=== PATIENT | female | born 1955 | race Caucasian/White ===

== ENCOUNTER → 2017-02-12 | Outpatient (REF) | payer MEDICARE, SELFPAY ==
[~2017-02-12] MED LIST: AMBI10TA PO; APAP325T4 PO; ASPI81TA85 PO; BUSP10TA PO; CODCAP PO; FISH1000 PO; LATU40TA PO; PRIL20CA9 PO; QUET30XR PO; TOPI50TA9 PO; TRAM50TA2 PO; TRAZ-136 PO; VITA100L PO; VITA1CAP2 PO; VITA500T PO
[2017-02-12 17:12] LABS: ALBUMIN 4.1 GM/DL (3.2-5.2); ALBUMIN/GLOBULIN RATIO 1.37 (1.00-1.93); ALKALINE PHOSPHATASE 94 U/L (45-117); ALT/SGPT 32 U/L (12-78); ANION GAP 5 MEQ/L (8-16); AST/SGOT 19 U/L (15-37); BILIRUBIN,TOTAL 0.3 MG/DL (0.2-1.0); BLOOD UREA NITROGEN 14 MG/DL (7-18); CALCIUM LEVEL 9.4 MG/DL (8.8-10.2); CARBON DIOXIDE LEVEL 26 MEQ/L (21-32); CHLORIDE LEVEL 107 MEQ/L (98-107); CHOLESTEROL LEVEL 285 MG/DL (<200); CREATININE FOR GFR 0.91 MG/DL (0.55-1.02); GLOMERULAR FILTRATION RATE > 60.0 (>45); GLUCOSE, FASTING 101 MG/DL (80-110); POTASSIUM SERUM 4.1 MEQ/L (3.5-5.1); SODIUM LEVEL 138 MEQ/L (136-145); TOTAL PROTEIN 7.1 GM/DL (6.4-8.2); TRIGLYCERIDES LEVEL 361 MG/DL (<150)
== END ==
LOC: M LAB REF 16:35
PROVIDERS: ATTEND Nurse Practitioner Family
DX: E55.9 Vitamin D deficiency, unspecified (principal); E78.5 Hyperlipidemia, unspecified; M79.7 Fibromyalgia; E11.9 Type 2 diabetes mellitus without complications

== ENCOUNTER → 2017-07-21 | Outpatient (CLI) | payer MEDICAID, MEDICARE ==
--- NOTE | 2017-07-21 12:42 | REPMRS ---
Patient History The patient states she had a clinical breast exam in 2016. Patient is postmenopausal. No known family history of cancer. Digital Mammo Diagnostic Bilateral: July 21, 2017 - Exam #: [id number] Bilateral CC and MLO view(s) were taken. Technologist: Ginger Ochoa, Technologist FINDINGS: There are scattered fibroglandular densities. There is no evidence of cancer on this mammogram. ASSESSMENT: BI-RADS/ACR category 2 mammogram. Benign finding(s). Recommendation Routine screening mammogram of both breasts in 1 year (for women over age 40). This mammogram was interpreted with the aid of an FDA-approved computer-aided dectection system. Electronically Signed By: Alec Chaudhari MD 07/21/17 0930
== END ==
LOC: M RAD 12:09
PROVIDERS: ATTEND Nurse Practitioner Adult Health
DX: N64.89 Other specified disorders of breast (principal); Z78.0 Asymptomatic menopausal state

== ENCOUNTER → 2017-09-17 | Outpatient (REF) | payer MEDICARE ==
[2017-09-17 18:06] LABS: CHOLESTEROL LEVEL 244 MG/DL (<200); CHOLESTEROL RISK RATIO 7.393 (<5); HDL CHOLESTEROL 33 MG/DL (>40); NON-HDL-C 211 MG/DL; TRIGLYCERIDES LEVEL 427 MG/DL (<150)
[2017-09-17 18:39] LABS: TOTAL 25(OH) VITAMIN D 18.6 NG/ML (30.0-100.0)
== END ==
LOC: M LAB REF 16:45
DX: E78.5 Hyperlipidemia, unspecified (principal); E55.9 Vitamin D deficiency, unspecified
CPT/HCPCS: 82306

== ENCOUNTER → 2017-12-22 | Outpatient (REF) | payer MEDICARE, MEDICAID ==
[2017-12-22 18:54] LABS: ESTIMATED AVERAGE GLUCOSE 157 MG/DL (60-110); HEMOGLOBIN A1c 7.1 %
== END ==
LOC: M LAB REF 18:04
DX: E11.9 Type 2 diabetes mellitus without complications (principal)
CPT/HCPCS: 83036

== ENCOUNTER → 2019-03-29 | Outpatient (REF) | payer MEDICARE ==
[~2019-03-29] MED LIST changes: -CODCAP PO; +CODCAP5 PO; -QUET30XR PO; +SERO300T PO; -TRAZ-136 PO; +TRAZ-257 PO; +VITA-183 PO; -VITA1CAP2 PO
[2019-03-29 17:47] LABS: BASO # 0.1 10^3/uL (0.0-0.2); BASO % 0.5 % (0.0-1.0); EOS # 0.3 10^3/uL (0.0-0.50); EOS % 3.4 % (0.0-3.0); HEMATOCRIT 45.3 % (36.0-47.0); HEMOGLOBIN 14.8 g/dl (12.0-15.5); LYMPH # 2.5 10^3/uL (1.5-4.5); LYMPH % 24.7 % (24.0-44.0); MEAN CORPUSCULAR HEMOGLOBIN 30.6 pg (27.0-33.0); MEAN CORPUSCULAR HGB CONC 32.7 g/dl (32.0-36.5); MEAN CORPUSCULAR VOLUME 93.6 fl (80.0-96.0); MONO # 0.6 10^3/uL (0.0-0.8); MONO % 6.1 % (0.0-5.0); NEUTROPHILS # 6.6 10^3/uL (1.8-7.7); NEUTROPHILS % 64.7 % (36.0-66.0); PLATELET COUNT, AUTOMATED 286 10^3/uL (150-450); RED BLOOD COUNT 4.84 10^6/uL (4.00-5.40); WHITE BLOOD COUNT 10.1 10^3/uL (4.0-10.0)
[2019-03-29 17:59] LABS: ALBUMIN 3.8 GM/DL (3.2-5.2); ALT/SGPT 30 U/L (12-78); BILIRUBIN,TOTAL 0.3 MG/DL (0.2-1.0); BLOOD UREA NITROGEN 13 MG/DL (7-18); CALCIUM LEVEL 9.5 MG/DL (8.8-10.2); CARBON DIOXIDE LEVEL 30 MEQ/L (21-32); CHLORIDE LEVEL 108 MEQ/L (98-107); CHOLESTEROL LEVEL 251 MG/DL (<200); CHOLESTEROL RISK RATIO 7.171 (<5); CREATININE FOR GFR 0.91 MG/DL (0.55-1.30); GLOMERULAR FILTRATION RATE > 60.0 (>45); GLUCOSE, FASTING 132 MG/DL (70-100); HDL CHOLESTEROL 35 MG/DL (>40); LDL CHOLESTEROL 147 MG/DL (<100); NON-HDL-C 216 MG/DL; POTASSIUM SERUM 4.1 MEQ/L (3.5-5.1); SODIUM LEVEL 142 MEQ/L (136-145); TOTAL PROTEIN 7.1 GM/DL (6.4-8.2); TRIGLYCERIDES LEVEL 347 MG/DL (<150)
[2019-03-29 18:00] LABS: TOTAL 25(OH) VITAMIN D 23.9 NG/ML (30.0-100.0)
== END ==
LOC: M LAB REF 16:56
PROVIDERS: ATTEND Nurse Practitioner Adult Health
DX: Z13.9 Encounter for screening, unspecified (principal)

== ENCOUNTER → 2019-04-13 | Outpatient (REF) | payer MEDICARE ==
[~2019-04-13] MED LIST changes: +CODCAP4 PO; -CODCAP5 PO; +TRAZ-163 PO; -TRAZ-257 PO
[2019-04-16 14:42] LABS: HPV HYBRID CAPTURE II Negative (Negative)
== END ==
LOC: M LAB REF 17:14
PROVIDERS: ATTEND Advanced Practice Midwife
DX: Z12.4 Encounter for screening for malignant neoplasm of cervix (principal)
CPT/HCPCS: 87624; G0123

== ENCOUNTER → 2020-01-14 | Outpatient (REF) | payer MEDICARE ==
[~2020-01-14] MED LIST changes: -CODCAP4 PO; +CODCAP5 PO; -TRAZ-163 PO; +TRAZ-257 PO; +VITA-243 PO; -VITA500T PO
[2020-01-14 17:43] LABS: BASO # 0.1 10^3/uL (0.0-0.2); BASO % 0.7 % (0.0-1.0); EOS # 0.3 10^3/uL (0.0-0.5); EOS % 3.3 % (0.0-3.0); HEMATOCRIT 46.3 % (36.0-47.0); HEMOGLOBIN 15.2 g/dl (12.0-15.5); LYMPH # 2.1 10^3/uL (1.5-5.0); LYMPH % 21.5 % (24.0-44.0); MEAN CORPUSCULAR HEMOGLOBIN 30.5 pg (27.0-33.0); MEAN CORPUSCULAR HGB CONC 32.8 g/dl (32.0-36.5); MEAN CORPUSCULAR VOLUME 92.8 fl (80.0-96.0); MONO # 0.7 10^3/uL (0.0-0.8); NEUTROPHILS # 6.6 10^3/uL (1.5-8.5); NEUTROPHILS % 67.2 % (36.0-66.0); PLATELET COUNT, AUTOMATED 209 10^3/uL (150-450); RED BLOOD COUNT 4.99 10^6/uL (4.00-5.40); WHITE BLOOD COUNT 9.9 10^3/uL (4.0-10.0)
[2020-01-14 17:51] LABS: ALBUMIN 3.7 GM/DL (3.2-5.2); ALT/SGPT 45 U/L (12-78); BILIRUBIN,TOTAL 0.3 MG/DL (0.2-1.0); BLOOD UREA NITROGEN 13 MG/DL (7-18); CALCIUM LEVEL 9.2 MG/DL (8.8-10.2); CARBON DIOXIDE LEVEL 30 MEQ/L (21-32); CHLORIDE LEVEL 105 MEQ/L (98-107); CHOLESTEROL LEVEL 130 MG/DL (<200); CHOLESTEROL RISK RATIO 3.939 (<5); CREATININE FOR GFR 0.86 MG/DL (0.55-1.30); FREE T4 0.93 NG/DL (0.76-1.46); GLOMERULAR FILTRATION RATE > 60.0 (>45); GLUCOSE, FASTING 282 MG/DL (70-100); HDL CHOLESTEROL 33 MG/DL (>40); LDL CHOLESTEROL 63 MG/DL (<100); NON-HDL-C 97 MG/DL; POTASSIUM SERUM 4.1 MEQ/L (3.5-5.1); SODIUM LEVEL 138 MEQ/L (136-145); TOTAL PROTEIN 7.3 GM/DL (6.4-8.2); TRIGLYCERIDES LEVEL 170 MG/DL (<150)
[2020-01-14 17:55] LABS: TOTAL 25(OH) VITAMIN D 24.9 NG/ML (30.0-100.0)
[2020-01-14 18:10] LABS: HEMOGLOBIN A1c 11.6 %
== END ==
LOC: M LAB REF 17:25
PROVIDERS: ATTEND Physician Assistant
DX: R53.1 Weakness (principal); F17.200 Nicotine dependence, unspecified, uncomplicated; E78.5 Hyperlipidemia, unspecified; J44.9 Chronic obstructive pulmonary disease, unspecified; M79.7 Fibromyalgia; E55.9 Vitamin D deficiency, unspecified; E11.65 Type 2 diabetes mellitus with hyperglycemia; F31.9 Bipolar disorder, unspecified

== ENCOUNTER → 2020-06-26 | Outpatient (REF) | payer OTHER ==
[~2020-06-26] MED LIST changes: -ASPI81TA85 PO; +ASPI81TA86 PO
[2020-06-26 16:43] LABS: HEMATOCRIT 48.7 % (36.0-47.0); HEMOGLOBIN 15.6 g/dl (12.0-15.5); MEAN CORPUSCULAR HEMOGLOBIN 31.3 pg (27.0-33.0); MEAN CORPUSCULAR VOLUME 97.6 fl (80.0-96.0); PLATELET COUNT, AUTOMATED 287 10^3/uL (150-450); RED BLOOD COUNT 4.99 10^6/uL (4.00-5.40); WHITE BLOOD COUNT 11.1 10^3/uL (4.0-10.0)
[2020-06-26 17:16] LABS: ALBUMIN 4.2 GM/DL (3.2-5.2); ALT/SGPT 31 U/L (12-78); BILIRUBIN,TOTAL 0.4 MG/DL (0.2-1.0); BLOOD UREA NITROGEN 11 MG/DL (7-18); CALCIUM LEVEL 9.7 MG/DL (8.8-10.2); CARBON DIOXIDE LEVEL 28 MEQ/L (21-32); CHLORIDE LEVEL 106 MEQ/L (98-107); CHOLESTEROL LEVEL 105 MG/DL (<200); CHOLESTEROL RISK RATIO 2.837 (<5); CREATININE FOR GFR 0.97 MG/DL (0.55-1.30); GLOMERULAR FILTRATION RATE > 60.0 (>45); GLUCOSE, FASTING 96 MG/DL (70-100); HDL CHOLESTEROL 37 MG/DL (>40); LDL CHOLESTEROL 32 MG/DL (<100); NON-HDL-C 68 MG/DL; POTASSIUM SERUM 4.1 MEQ/L (3.5-5.1); SODIUM LEVEL 139 MEQ/L (136-145); TOTAL PROTEIN 7.7 GM/DL (6.4-8.2); TRIGLYCERIDES LEVEL 179 MG/DL (<150)
[2020-06-26 17:37] LABS: HEMOGLOBIN A1c 5.7 %
== END ==
LOC: M LAB REF 16:05
PROVIDERS: ATTEND Physician Assistant
DX: E11.65 Type 2 diabetes mellitus with hyperglycemia (principal); E78.5 Hyperlipidemia, unspecified; E55.9 Vitamin D deficiency, unspecified

== ENCOUNTER → 2020-11-10 | Outpatient (REF) | payer OTHER, MEDICARE ==
[2020-11-10 18:12] LABS: BASO # 0.1 10^3/uL (0.0-0.2); BASO % 0.6 % (0.0-1.0); EOS # 0.3 10^3/uL (0.0-0.5); EOS % 2.3 % (0.0-3.0); HEMATOCRIT 45.9 % (36.0-47.0); HEMOGLOBIN 14.4 g/dl (12.0-15.5); LYMPH # 2.3 10^3/uL (1.5-5.0); MEAN CORPUSCULAR HEMOGLOBIN 30.6 pg (27.0-33.0); MEAN CORPUSCULAR HGB CONC 31.4 g/dl (32.0-36.5); MEAN CORPUSCULAR VOLUME 97.7 fl (80.0-96.0); MONO # 0.9 10^3/uL (0.0-0.8); NEUTROPHILS # 7.4 10^3/uL (1.5-8.5); NEUTROPHILS % 67.7 % (36.0-66.0); PLATELET COUNT, AUTOMATED 305 10^3/uL (150-450); WHITE BLOOD COUNT 10.9 10^3/uL (4.0-10.0)
[2020-11-10 18:47] LABS: ALBUMIN 4.1 GM/DL (3.2-5.2); ALT/SGPT 32 U/L (12-78); BILIRUBIN,TOTAL 0.3 MG/DL (0.2-1.0); BLOOD UREA NITROGEN 14 MG/DL (7-18); CALCIUM LEVEL 9.3 MG/DL (8.8-10.2); CARBON DIOXIDE LEVEL 28 MEQ/L (21-32); CHLORIDE LEVEL 110 MEQ/L (98-107); CHOLESTEROL LEVEL 110 MG/DL (<200); CHOLESTEROL RISK RATIO 2.972 (<5); CREATININE FOR GFR 0.86 MG/DL (0.55-1.30); GLOMERULAR FILTRATION RATE > 60.0 (>45); GLUCOSE, FASTING 94 MG/DL (70-100); HDL CHOLESTEROL 37 MG/DL (>40); LDL CHOLESTEROL 40 MG/DL (<100); NON-HDL-C 73 MG/DL; POTASSIUM SERUM 4.7 MEQ/L (3.5-5.1); SODIUM LEVEL 141 MEQ/L (136-145); TOTAL PROTEIN 7.1 GM/DL (6.4-8.2); TRIGLYCERIDES LEVEL 163 MG/DL (<150)
[2020-11-10 18:54] LABS: TOTAL 25(OH) VITAMIN D 22.7 NG/ML (30.0-100.0)
[2020-11-10 19:30] LABS: HEMOGLOBIN A1c 5.8 %
== END ==
LOC: M LAB REF 17:12
PROVIDERS: ATTEND Physician Assistant
DX: E11.8 Type 2 diabetes mellitus with unspecified complications (principal); E55.9 Vitamin D deficiency, unspecified

== ENCOUNTER 2021-02-01 09:27 | Emergency (ER) | payer MEDICARE, OTHER ==
[~2021-02-01] VITALS: Ht 172.7 cm; Wt 80.7 kg
[2021-02-01] MEDS ORDERED: HYDR50CA2 (09:35)
[2021-02-01] MEDS ORDERED: ZOLP10TA2 (09:35)
[2021-02-01] MEDS ORDERED: ATOR80TA59 (09:35)
[2021-02-01] MEDS ORDERED: METF-838 (09:35)
[2021-02-01 10:08] LABS: BASO # 0.1 10^3/uL (0.0-0.2); BASO % 0.5 % (0.0-1.0); EOS # 0.2 10^3/uL (0.0-0.5); EOS % 1.7 % (0.0-3.0); HEMATOCRIT 45.9 % (36.0-47.0); HEMOGLOBIN 14.5 g/dl (12.0-15.5); LYMPH # 2.4 10^3/uL (1.5-5.0); LYMPH % 21.5 % (24.0-44.0); MEAN CORPUSCULAR HEMOGLOBIN 30.1 pg (27.0-33.0); MEAN CORPUSCULAR HGB CONC 31.6 g/dl (32.0-36.5); MEAN CORPUSCULAR VOLUME 95.4 fl (80.0-96.0); MONO # 0.7 10^3/uL (0.0-0.8); MONO % 6.4 % (2.0-8.0); NEUTROPHILS # 7.7 10^3/uL (1.5-8.5); NEUTROPHILS % 69.4 % (36.0-66.0); PLATELET COUNT, AUTOMATED 393 10^3/uL (150-450); RED BLOOD COUNT 4.81 10^6/uL (4.00-5.40)
[2021-02-01 10:33] LABS: ALT/SGPT 146 U/L (12-78); BLOOD UREA NITROGEN 16 MG/DL (7-18); CALCIUM LEVEL 9.8 MG/DL (8.8-10.2); CARBON DIOXIDE LEVEL 30 MEQ/L (21-32); CHLORIDE LEVEL 105 MEQ/L (98-107); CK-MB VALUE MASS < 1.0 NG/ML (<3.6); CPK CREATINE PHOSPHOKINASE 97 U/L (26-192); CREATININE FOR GFR 0.84 MG/DL (0.55-1.30); GLOMERULAR FILTRATION RATE > 60.0 (>45); GLUCOSE, FASTING 93 MG/DL (70-100); MB/CK RELATIVE INDEX 1.03 (< OR =4); SODIUM LEVEL 141 MEQ/L (136-145)
[2021-02-01 10:34] LABS: ALBUMIN 3.7 GM/DL (3.2-5.2); BILIRUBIN,DIRECT 0.2 MG/DL (0.0-0.2); BILIRUBIN,TOTAL 0.4 MG/DL (0.2-1.0); LIPASE 90 U/L (73-393); TOTAL PROTEIN 7.6 GM/DL (6.4-8.2); TROPONIN I < 0.02 NG/ML (< 0.10)
--- NOTE | 2021-02-01 11:32 | REP ---
INDICATION: RUQ pain COMPARISON: None. TECHNIQUE: Real time rojas scale ultrasound examination using curved array transducer. FINDINGS: Liver is mildly heterogeneous and includes a 1.7 x 1.5 x 1.6 cm anechoic lesion with somewhat irregular borders which likely represents complex cyst. No further hepatic abnormalities identified. Pancreas is incompletely evaluated due to interposed bowel gas. The gallbladder demonstrates mild wall thickening along with multiple gallstones. There is mild intrahepatic biliary ductal dilatation and the common bile duct is dilated to 11.6 mm with a suspected obstructing calculus in the distal common bile duct. The right kidney is without hydronephrosis and measures 10.6 x 5.4 x 4.3 cm including subcentimeter midpole cyst. No ascites. IMPRESSION: Early acute cholecystitis and biliary ductal dilatation secondary to suspected obstructing choledocholith in the distal common bile duct. Irregular bordered cystic lesion within the liver likely complex cyst. <Electronically signed by Delroy Prince > 02/01/21 1129
[2021-02-01] MEDS ORDERED: NS 1,000 ML IV SCH (13:25)
[2021-02-01] MEDS ORDERED: PIPERACILLIN/TAZOBACTAM SOD 3.375 GM in D5W MINI-BAG PLUS 50 ML IV ONE (13:25)
[2021-02-01 13:38] LABS: RSV AMPLIFICATION NEGATIVE (NEGATIVE)
[2021-02-01 14:56] VITALS: BP 119/59
--- NOTE | 2021-02-01 18:02 | ECGEPIP ---
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
== END 2021-02-01 14:57 | disposition short-term general hospital (02) ==
LOC: M ED 09:27
DX: K80.20 Calculus of gallbladder without cholecystitis without obstruction (principal); E11.9 Type 2 diabetes mellitus without complications; I10 Essential (primary) hypertension; K21.9 Gastro-esophageal reflux disease without esophagitis; F31.9 Bipolar disorder, unspecified; F17.200 Nicotine dependence, unspecified, uncomplicated; Z79.82 Long term (current) use of aspirin; Z79.899 Other long term (current) drug therapy
CPT/HCPCS: 76705; 80048; 80076; 82550; 82553; 83690; 84484; 85025; 87631; 93005; 96365; 99285; J2543

== ENCOUNTER → 2021-04-19 | Outpatient (CLI) | payer MEDICARE ==
[~2021-04-19] MED LIST changes: +ATOR80TA59; +D 101000 PO; +HYDR50CA2; +METF-838; +METR-265 PO; +QUET100T2 PO; +QUET400T2 PO; +TRAZ-189 PO; +ZOLP10TA2
== END ==
LOC: M LABSMTC 09:03
PROVIDERS: ATTEND Anesthesiology
DX: Z01.812 Encounter for preprocedural laboratory examination (principal); Z20.822 Contact with and (suspected) exposure to COVID-19

== ENCOUNTER → 2021-04-20 | Outpatient (CLI) | payer MEDICARE ==
[2021-04-20 15:53] LABS: BASO # 0.1 10^3/uL (0.0-0.2); BASO % 0.5 % (0.0-1.0); EOS # 0.3 10^3/uL (0.0-0.5); EOS % 2.2 % (0.0-3.0); HEMATOCRIT 43.5 % (36.0-47.0); HEMOGLOBIN 14.1 g/dl (12.0-15.5); LYMPH # 3.4 10^3/uL (1.5-5.0); LYMPH % 26.4 % (24.0-44.0); MEAN CORPUSCULAR HEMOGLOBIN 30.7 pg (27.0-33.0); MEAN CORPUSCULAR HGB CONC 32.4 g/dl (32.0-36.5); MEAN CORPUSCULAR VOLUME 94.6 fl (80.0-96.0); MONO # 0.9 10^3/uL (0.0-0.8); MONO % 6.7 % (2.0-8.0); NEUTROPHILS # 8.1 10^3/uL (1.5-8.5); NEUTROPHILS % 63.9 % (36.0-66.0); PLATELET COUNT, AUTOMATED 342 10^3/uL (150-450); WHITE BLOOD COUNT 12.7 10^3/uL (4.0-10.0)
[2021-04-20 16:23] LABS: BLOOD UREA NITROGEN 15 MG/DL (7-18); CALCIUM LEVEL 9.5 MG/DL (8.8-10.2); CARBON DIOXIDE LEVEL 32 MEQ/L (21-32); CHLORIDE LEVEL 105 MEQ/L (98-107); CREATININE FOR GFR 0.87 MG/DL (0.55-1.30); GLOMERULAR FILTRATION RATE > 60.0 (>45); GLUCOSE, FASTING 106 MG/DL (70-100); POTASSIUM SERUM 3.9 MEQ/L (3.5-5.1); SODIUM LEVEL 141 MEQ/L (136-145)
== END ==
LOC: M LAB 15:15
PROVIDERS: ATTEND Physician Assistant
DX: Z01.818 Encounter for other preprocedural examination (principal)

== ENCOUNTER → 2021-04-24 | Day surgery (SDC) | payer MEDICARE ==
[~2021-04-24] VITALS: Ht 172.7 cm; Wt 80.6 kg
[~2021-04-24] MED LIST changes: +ACETAMINOPHEN 1000MG 100ML IV BTL (OFIRMEV) (J0131 PER 10MG) As Ordered ONE; +BUPIVACAINE/EPIN 0.25% 30 ML VIAL As Ordered ONE; +KETOROLAC 30 MG/ML 1ML VIAL IV ONE; +LIDOCAINE 1% MDV 20ML VIAL SQ PRN; +LIDOCAINE 2% 100MG/5ML SDV (FOR ANES.) As Ordered ONE; +LR 1,000 ML IV ONE; +LR 1,000 ML IV SCH; +METF-838 PO; +METOCLOPRAMIDE INJ 10MG/2ML VIAL (J2765 PER 1) As Ordered ONE; +MIDAZOLAM INJ 2MG/2ML VIAL (J2250 PER 1MG) As Ordered ONE; +NORCO, ANEXSIA 5/325MG TABLET (HYDROcodone/ACETAMINOPHEN) PO PRN; +ONDANSETRON 4MG/2ML VIAL As Ordered ONE; +ONDANSETRON 4MG/2ML VIAL IV PRN; +ROCURONIUM BROMIDE 50 MG/5 ML VIAL As Ordered ONE; +SUGAMMADEX SODIUM 500 MG/5 ML VIAL (BRIDION) As Ordered ONE; +ZOLP10TA2 PO; +ceFAZolin SOD 2 GM in IV 1 EA IV ONE; +dexameTHASONE 4 MG/ML 1ML VIAL (J1100 PER 1MG) As Ordered ONE; +fentaNYL 100 MCG/2 ML INJECTION (J3010) As Ordered ONE; +fentaNYL 100 MCG/2 ML INJECTION (J3010) IV PRN; +oxyCODONE 5MG TAB PO PRN; +propofoL 200 MG/20 ML VIAL As Ordered ONE
[2021-04-24] MEDS: ceFAZolin SOD 1 GM in D5W MINI-BAG PLUS 50 ML IV SCH ×4 (09:10)
[2021-04-24 12:20] VITALS: BP 133/71
== END | disposition home or self-care (01) ==
LOC: M SDC 07:00
PROVIDERS: ATTEND Surgery
DX: K80.10 Calculus of gallbladder with chronic cholecystitis without obstruction (principal); E78.00 Pure hypercholesterolemia, unspecified; K59.00 Constipation, unspecified; M79.7 Fibromyalgia; E11.9 Type 2 diabetes mellitus without complications; F32.9 Major depressive disorder, single episode, unspecified; Z79.82 Long term (current) use of aspirin; Z79.84 Long term (current) use of oral hypoglycemic drugs; Z79.899 Other long term (current) drug therapy
CPT/HCPCS: 47562; 88304; J0131; J0690; J1100; J1885; J2250; J2405; J2765; J3010

== ENCOUNTER 2021-05-19 13:44 | Emergency (ER) | payer MEDICARE ==
[~2021-05-19] VITALS: Ht 172.7 cm; Wt 80.0 kg
[~2021-05-19 13:44] MED LIST changes: -ACETAMINOPHEN 1000MG 100ML IV BTL (OFIRMEV) (J0131 PER 10MG) As Ordered ONE; -BUPIVACAINE/EPIN 0.25% 30 ML VIAL As Ordered ONE; -KETOROLAC 30 MG/ML 1ML VIAL IV ONE; -LIDOCAINE 1% MDV 20ML VIAL SQ PRN; -LIDOCAINE 2% 100MG/5ML SDV (FOR ANES.) As Ordered ONE; -LR 1,000 ML IV ONE; -LR 1,000 ML IV SCH; -METOCLOPRAMIDE INJ 10MG/2ML VIAL (J2765 PER 1) As Ordered ONE; -MIDAZOLAM INJ 2MG/2ML VIAL (J2250 PER 1MG) As Ordered ONE; -NORCO, ANEXSIA 5/325MG TABLET (HYDROcodone/ACETAMINOPHEN) PO PRN; -ONDANSETRON 4MG/2ML VIAL As Ordered ONE; -ONDANSETRON 4MG/2ML VIAL IV PRN; -ROCURONIUM BROMIDE 50 MG/5 ML VIAL As Ordered ONE; -SUGAMMADEX SODIUM 500 MG/5 ML VIAL (BRIDION) As Ordered ONE; -ceFAZolin SOD 2 GM in IV 1 EA IV ONE; -dexameTHASONE 4 MG/ML 1ML VIAL (J1100 PER 1MG) As Ordered ONE; -fentaNYL 100 MCG/2 ML INJECTION (J3010) As Ordered ONE; -fentaNYL 100 MCG/2 ML INJECTION (J3010) IV PRN; -oxyCODONE 5MG TAB PO PRN; -propofoL 200 MG/20 ML VIAL As Ordered ONE
[2021-05-19] MEDS ORDERED: NAPR-849 PO (14:03)
[2021-05-19] MEDS ORDERED: diazePAM 10MG/2ML SYRINGE (J3360 PER 5MG) IV ONE (14:05)
[2021-05-19 14:38] LABS: BASO # 0.1 10^3/uL (0.0-0.2); BASO % 0.5 % (0.0-1.0); EOS # 0.2 10^3/uL (0.0-0.5); EOS % 1.8 % (0.0-3.0); HEMATOCRIT 38.2 % (36.0-47.0); HEMOGLOBIN 12.4 g/dl (12.0-15.5); LYMPH # 1.8 10^3/uL (1.5-5.0); LYMPH % 13.5 % (24.0-44.0); MEAN CORPUSCULAR HEMOGLOBIN 30.2 pg (27.0-33.0); MEAN CORPUSCULAR HGB CONC 32.5 g/dl (32.0-36.5); MEAN CORPUSCULAR VOLUME 92.9 fl (80.0-96.0); MONO # 0.9 10^3/uL (0.0-0.8); MONO % 6.8 % (2.0-8.0); NEUTROPHILS % 77.1 % (36.0-66.0); PLATELET COUNT, AUTOMATED 281 10^3/uL (150-450); RED BLOOD COUNT 4.11 10^6/uL (4.00-5.40)
--- NOTE | 2021-05-19 14:42 | REP ---
INDICATION: severe headache/vomiting COMPARISON: 05/24/2015 TECHNIQUE: Axial noncontrast images from the skull base to the thoracic inlet with coronal reformations. This CT examination was performed using the following dose reduction techniques: Automated exposure control, adjustment of mA and/or kv according to the patient's size, and use of iterative reconstruction technique. FINDINGS: Age-related atrophy and microvascular ischemic changes are appreciated. The ventricles and sulci are symmetric. Chaudhari-white differentiation is maintained. There is no evidence for acute intracranial hemorrhage, mass/mass effect, pathology or infarction. No extra-axial fluid collection. Calvarium is intact. Paranasal sinuses and mastoid air cells are clear. IMPRESSION: Age-related changes. No acute intracranial hemorrhage, infarction, or mass/mass effect. <Electronically signed by Delroy Prince > 05/19/21 1697
[2021-05-19 14:53] LABS: ALBUMIN 3.2 GM/DL (3.2-5.2); ALT/SGPT 19 U/L (12-78); BILIRUBIN,DIRECT < 0.1 MG/DL (0.0-0.2); BILIRUBIN,TOTAL 0.3 MG/DL (0.2-1.0); BLOOD UREA NITROGEN 11 MG/DL (7-18); CALCIUM LEVEL 8.8 MG/DL (8.8-10.2); CARBON DIOXIDE LEVEL 28 MEQ/L (21-32); CHLORIDE LEVEL 111 MEQ/L (98-107); CREATININE FOR GFR 0.74 MG/DL (0.55-1.30); GLOMERULAR FILTRATION RATE > 60.0 (>45); GLUCOSE, FASTING 101 MG/DL (70-100); LIPASE 60 U/L (73-393); POTASSIUM SERUM 3.7 MEQ/L (3.5-5.1); SODIUM LEVEL 142 MEQ/L (136-145); TOTAL PROTEIN 6.6 GM/DL (6.4-8.2)
[2021-05-19] MEDS ORDERED: ACETAMINOPHEN 325 MG TAB PO ONE (15:15)
[2021-05-19 17:24] VITALS: BP 121/78
== END 2021-05-19 17:42 | disposition home or self-care (01) ==
LOC: M ED 13:44 → EDBD 13:44 → M ED 17:42
DX: R19.7 Diarrhea, unspecified (principal); R11.2 Nausea with vomiting, unspecified; R51.9 Headache, unspecified; I10 Essential (primary) hypertension; E78.5 Hyperlipidemia, unspecified; F31.9 Bipolar disorder, unspecified; Z79.899 Other long term (current) drug therapy
CPT/HCPCS: 70450; 80048; 80076; 83690; 85025; 93041; 96374; 99285; J3360

== ENCOUNTER 2021-07-08 12:34 | Emergency (ER) | payer MEDICARE ==
[~2021-07-08] VITALS: Ht 167.6 cm; Wt 75.9 kg
[~2021-07-08 12:34] MED LIST changes: +NAPR-849 PO
[2021-07-08] MEDS ORDERED: dexameTHASONE 20MG/5ML VIAL (J1100 PER 1MG) IV ONE (13:25)
[2021-07-08 13:27] LABS: VENOUS HCO3 27.3 MEQ/L (23.0-27.0); VENOUS O2 SATURATION 36.6 % (60.0-80.0); VENOUS PARTIAL PRESSURE CO2 55.4 mmHg (38.0-50.0); VENOUS PARTIAL PRESSURE O2 19.7 mmHg (30.0-50.0)
[2021-07-08 13:30] LABS: BASO # 0.1 10^3/uL (0.0-0.2); BASO % 0.5 % (0.0-1.0); EOS # 0.3 10^3/uL (0.0-0.5); EOS % 2.1 % (0.0-3.0); HEMATOCRIT 41.7 % (36.0-47.0); HEMOGLOBIN 13.1 g/dl (12.0-15.5); LYMPH # 2.4 10^3/uL (1.5-5.0); LYMPH % 17.3 % (24.0-44.0); MEAN CORPUSCULAR HGB CONC 31.4 g/dl (32.0-36.5); MEAN CORPUSCULAR VOLUME 92.3 fl (80.0-96.0); MONO # 0.9 10^3/uL (0.0-0.8); MONO % 6.3 % (2.0-8.0); NEUTROPHILS # 10.2 10^3/uL (1.5-8.5); NEUTROPHILS % 73.2 % (36.0-66.0); PLATELET COUNT, AUTOMATED 427 10^3/uL (150-450); RED BLOOD COUNT 4.52 10^6/uL (4.00-5.40); WHITE BLOOD COUNT 13.9 10^3/uL (4.0-10.0)
--- NOTE | 2021-07-08 13:31 | REP ---
INDICATION: Altered Mental Status. Progressive right-sided weakness. COMPARISON: CT head without IV contrast, 05/19/2021. TECHNIQUE: Contiguous 5 mm thick axial projection images were obtained of the head. 2D coronal reconstructions were performed. FINDINGS: There is an area cerebral edema centered in the subcortical and periventricular white matter of the left frontal cortex and extending posteriorly into the parietal cortex. This is most consistent with an underlying mass with surrounding edema, most likely a neoplasm which could be primary or metastatic. There is no significant midline shift or mass effect. There is no evidence of associated hemorrhage. No additional abnormalities are identified. IMPRESSION: 1. Area of white matter edema involving the left frontal and parietal lobes most consistent with an underlying mass, as described. 2. There is no significant mass effect. 3. There are no additional abnormalities and there is no associated hemorrhage. Pertinent findings: Left-sided cerebral edema, without mass effect. The critical information above was relayed directly by me by telephone to Herb Chan on 07/08/2021 at 1:26 pm with readback verification. <Electronically signed by Irving Gusman > 07/08/21 1498
--- NOTE | 2021-07-08 13:48 | REP ---
INDICATION: Altered Mental Status. COMPARISON: PA and lateral chest, 11/01/2014. TECHNIQUE: AP portable chest image was obtained. FINDINGS: The lungs are clear. The heart borders mediastinum and pulmonary vascular pattern normal. The upper abdomen appears unremarkable. There are no bony abnormalities. IMPRESSION: No evidence of acute cardiopulmonary pathology. <Electronically signed by Irving Gusman > 07/08/21 1538
[2021-07-08 14:00] LABS: ALBUMIN 3.2 GM/DL (3.2-5.2); ALT/SGPT 26 U/L (12-78); BILIRUBIN,DIRECT < 0.1 MG/DL (0.0-0.2); BILIRUBIN,TOTAL 0.2 MG/DL (0.2-1.0); BLOOD UREA NITROGEN 11 MG/DL (7-18); CALCIUM LEVEL 9.4 MG/DL (8.8-10.2); CARBON DIOXIDE LEVEL 28 MEQ/L (21-32); CHLORIDE LEVEL 106 MEQ/L (98-107); CREATININE FOR GFR 0.88 MG/DL (0.55-1.30); GLOMERULAR FILTRATION RATE > 60.0 (>45); GLUCOSE, FASTING 118 MG/DL (70-100); POTASSIUM SERUM 3.9 MEQ/L (3.5-5.1); SODIUM LEVEL 142 MEQ/L (136-145); TOTAL PROTEIN 7.3 GM/DL (6.4-8.2)
[2021-07-08 14:51] LABS: RSV AMPLIFICATION NEGATIVE (NEGATIVE)
[2021-07-08 16:32] VITALS: BP 141/77
--- NOTE | 2021-07-08 17:26 | ECGEPIP ---
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
== END 2021-07-08 17:04 | disposition short-term general hospital (02) ==
LOC: EDBD 12:34 → M ED 12:34
DX: G93.89 Other specified disorders of brain (principal); E11.9 Type 2 diabetes mellitus without complications; I10 Essential (primary) hypertension; E78.5 Hyperlipidemia, unspecified; F31.9 Bipolar disorder, unspecified; Z79.82 Long term (current) use of aspirin; Z79.899 Other long term (current) drug therapy
CPT/HCPCS: 70450; 71045; 80047; 80048; 80076; 81001; 82803; 83605; 84443; 85025; 87040; 87631; 93005; 93041; 94760; 96374; 99285; J1100

== ENCOUNTER → 2021-07-30 | Outpatient (CLI) | payer MEDICARE ==
[~2021-07-30] MED LIST changes: -ATOR80TA59; +ATOR80TA59 PO; +CODE30TA PO; +D31000TA2 PO; +DEXA4TA PO; +ECOT81TA5 PO; +HYDR100C PO; -HYDR50CA2; +HYDR50CA2 PO; -LATU40TA PO; +LATU40TA2 PO; +LEVE750T5 PO
== END ==
LOC: M PLARAD 10:04
PROVIDERS: ATTEND Internal Medicine Hematology & Oncology
DX: Z53.9 Procedure and treatment not carried out, unspecified reason (principal)

== ENCOUNTER → 2021-07-31 | Outpatient (CLI) | payer MEDICARE ==
[~2021-07-31] MED LIST changes: -CODE30TA PO; -HYDR100C PO; +LATU40TA PO; -LATU40TA2 PO
[2021-07-31 12:21] LABS: BASO % 0.1 % (0.0-1.0); HEMATOCRIT 41.6 % (36.0-47.0); HEMOGLOBIN 13.8 g/dl (12.0-15.5); LYMPH # 0.9 10^3/uL (1.5-5.0); LYMPH % 5.2 % (24.0-44.0); MEAN CORPUSCULAR HGB CONC 33.2 g/dl (32.0-36.5); MEAN CORPUSCULAR VOLUME 90.4 fl (80.0-96.0); MONO # 0.7 10^3/uL (0.0-0.8); MONO % 3.8 % (2.0-8.0); NEUTROPHILS # 16.2 10^3/uL (1.5-8.5); NEUTROPHILS % 89.4 % (36.0-66.0); PLATELET COUNT, AUTOMATED 231 10^3/uL (150-450); WHITE BLOOD COUNT 18.1 10^3/uL (4.0-10.0)
[2021-07-31 12:50] LABS: ALBUMIN 3.2 GM/DL (3.2-5.2); ALT/SGPT 42 U/L (12-78); BILIRUBIN,TOTAL 0.3 MG/DL (0.2-1.0); BLOOD UREA NITROGEN 29 MG/DL (7-18); CARBON DIOXIDE LEVEL 26 MEQ/L (21-32); CHLORIDE LEVEL 103 MEQ/L (98-107); CREATININE FOR GFR 0.94 MG/DL (0.55-1.30); GLOMERULAR FILTRATION RATE > 60.0 (>45); GLUCOSE, FASTING 339 MG/DL (70-100); POTASSIUM SERUM 4.4 MEQ/L (3.5-5.1); SODIUM LEVEL 135 MEQ/L (136-145); TOTAL PROTEIN 6.4 GM/DL (6.4-8.2)
--- NOTE | 2021-07-31 12:59 | RADONC.CN ---
Radiation Oncology Hx/Consult Radiation Oncology Consult Date of Service: Jul 31, 2021 Pt Identifier Maine Hart is a 66 year old female smoker who presented with a seizure and right-sided weakness on 07/08/21 and was found to have 2 intracranial lesions in the left high frontal and parietal lobes, respectively. She was transferred to [email or web address]] where workup revealed a right-sided colon mass s/p colonoscopy showing adenocarcinoma, as well as a large RLL lung mass which was biopsied on 07/12/21 and returned poorly differentiated adenocarcinoma. She has established with medical oncology @ [facility] and will undergo repeat MRI on 08/09/21. She is seen today to discuss SRS. Diagnosis/Treatment History Oncologic History 07/08/21 Suffered seizures and right-sided hemiparesis, presented to [facility] ED where CT head showed edema in the left frontal-parietal region. She was transferred to [facility] [email or web address] MRI brain revealed 2 small metastatic lesions left parafalcine frontal 1.6 x 1.3 cm and left parafalcine parietal 0.8 x 0.7 cm. Body scans showed a RLL mass ~ 5 cm, metastatic adenopathy and a small right colon mass of unclear etiology. She underwent colonoscopy on 07/11/[address] biopsy of the RLL mass which showed NSCLC (adenocarcinoma) c/w lung origin. She was discharged and established with medical oncology @ [facility] on 07/20/21. Recent data: 07/12/21 Pathology Diagnosis LUNG, RIGHT LOWER LOBE LESION, CORE BIOPSY: ADENOCARCINOMA. (See Microscopic Description). 07/11/21 Colonoscopy Diagnosis COLON, RIGHT, BIOPSY: INVASIVE MODERATELY DIFFERENTIATED ADENOCARCINOMA. 07/09/21 MRI brain FINDINGS; There are 2 enhancing lesions, one on the left posterior frontal lobe containing hemosiderin deposition and the other in the left parietal lobe measuring 1.6 cm and 0.8 cm in AP dimension respectively with associated prominent surrounding edema. The ring-enhancing portion shows diffusion restriction. The ventricular system is age appropriate in size, shape, and configuration. The ventricles are midline. The cortical sulci is age appropriate in size, shape and configuration. There is no midline shift or mass effect. Normal flow-voids are seen bilaterally. Several nonspecific punctate foci of T2 and FLAIR high signal intensity scattered within the white matter at the level of velasquez radiata and centrum semiovale bilaterally. Chaudhari and white matter differentiation is preserved. No significant congenital anomaly. No AVM or aneurysm. The visualized brain stem is unremarkable. The visualized posterior fossa structures shows a few nonspecific punctate foci of T2 and FLAIR high signal intensity in the left cerebellar hemisphere medially. The sella, hypophysis, and corpus callosum are grossly unremarkable with normal posterior pituitary T1 bright spot. No evidence of Chiari I malformation. The internal auditory canals are symmetric and unremarkable. The cerebellopontine angle is unremarkable bilaterally. Visualized paranasal sinuses including the mastoid air cells are all clear. IMPRESSION: 1. 2 small ring-enhancing lesions as described above suspicious for brain m etastases. 2. Minimal underlying chronic microvascular ischemic changes of the white matter. Interval History Maine feels well, strength has returned near-normal, no further seizures. Continues on keppra. Continues on decadron 4 mg TID. No pain whatsoever, no SOB. Has decided to quit smoking. No weight loss or BRBPR. Past Medical History: COPD Bipolar disorder DM2 Past Surgical History: Tonsillectomy Cholecystectomy Family History: Father pancreatic cancer Social History: 50+ pack year smoker (recent quit) Used to drink alcohol does not currently Allergies / Meds Allergies: Coded Allergies: No Known Drug Allergies (Verified Allergy, Unknown, 04/24/21) Home Meds Reported Medications Dexamethasone (Dexamethasone) 4 Mg Tablet, 1 TAB PO Q6H 07/20/21 Levetiracetam (Levetiracetam) 750 Mg Tablet, 1 TAB PO BID 07/20/21 Cholecalciferol (Vitamin D3) (Vitamin D3) 1,000 Unit Tablet, 1000 UNITS PO DAILY, TAB 07/20/21 Aspirin (Ecotrin) 81 Mg Tablet.dr, 1 TAB PO DAILY for pain for 30 Days, #30 TAB 07/20/21 Metformin HCl (Metformin HCl ER) 500 Mg Tab.er.24h, 1000 MG PO QHS, TAB pt states she takes 1000mg po q2d in addition to the 1000mg qhs 04/24/21 Zolpidem Tartrate (Zolpidem Tartrate) 10 Mg Tablet, 10 MG PO QHS 04/24/21 Quetiapine Fumarate (Quetiapine Fumarate) 100 Mg Tablet, 100 MG PO DAILY 04/11/21 Trazodone HCl (Trazodone HCl) 100 Mg Tablet, 450 MG PO DAILYPRN PRN for INSOMNIA 04/11/21 Quetiapine Fumarate (Quetiapine Fumarate) 400 Mg Tablet, 400 MG PO DAILY 04/11/21 Hydroxyzine Pamoate (Hydroxyzine Pamoate) 50 Mg Capsule, 1 CAP PO TID 02/01/21 Atorvastatin Calcium (Atorvastatin Calcium) 80 Mg Tablet, 1 TAB PO DAILY 02/01/21 Acetaminophen (Acetaminophen) 325 Mg Tab, 325 MG PO QIDP PRN for PAIN, TAB 12/12/15 Review of Systems Constitutional: Reports: Normal appetite; Denies: Weight Loss HEENT: Denies: Head Aches Pulmonary: Reports: Dyspnea; Denies: Pleuritic Chest Pain Cardiovascular: Denies: Chest Pain, Edema Gastrointestinal: Denies: Abdominal Pain Musculoskeletal: Denies: Neck pain, Back pain Neurological: Reports: Weakness; Denies: Numbness, Incoordination, Seizures Psych: Reports: Mood Normal Vital Signs Ht 66" Wt 166 lbs BMI 27 T 98.1 P 83 RR 18 BP 158/88 O2 96% Pain 0 Fatigue 0 General Exam: Alert, Cooperative, No Acute Distress Eye Exam: PERRLA, EOMI ENT EXAM: Atraumatic Neck Exam: Supple Chest Exam: Clear to auscultation Heart Exam: Rate Normal Abdomen Exam: Soft Extremity Exam: Negative: Edema Skin Exam: Nl turgor and temperature, Pruritus (Dry skin on hands); Negative: Rash Neuro Exam: Normal Gait, Normal Speech, Strength at 5/5 X4 ext, Cranial Nerves 3-12 NL Psych Exam: Mental status NL Diagnostic and Laboratory Diagnostic Review Radiologic images, relevant labs and pathology reports were personally reviewed and discussed with Ms. Hart. Assessment and Plan Impression Ms. Hart is a 66 year old female smoker who presented with a seizure and right-sided weakness on 07/08/21 and was found to have 2 intracranial lesions in the left high frontal and parietal lobes, respectively. She was transferred to [facility] [email or web address]] where workup revealed a right-sided colon mass s/p colonoscopy showing adenocarcinoma, as well as a large RLL lung mass which was biopsied on 07/12/21 and returned poorly differentiated adenocarcinoma. She has established with medical oncology @ [facility] and will undergo repeat MRI on 08/09/21. She is seen today to discuss SRS. Stage NSCLC RLL [id number] stage IVB Right colon [id number] stage X Synchronous Performance Status ECOG 1 Plan We had an extensive discussion with Ms. Hart regarding the diagnosis at hand and available therapeutic options. She has 2 small parafalcine lesions in the high frontal-parietal region which are good targets for single isocenter VMAT-based SRS 27 Gy in 3 fractions. She has a repeat MRI scheduled for 08/09/21 which will be of use in planning her treatments. We discussed the logistics of receiving radiation therapy in detail including the need for a 1-time planning session. This can occur ~08/13/21. Treatment can follow in the next few days after. We reviewed the side effects of SRS, fatigue, edema and late necrosis. After discussing the risks, benefits and alternatives to radiation therapy, Ms. Hart was amenable to pursuing radiotherapy. All questions were answered to the patient's satisfaction. For her decadron, she will decrease to 4 mg BID for now and continue at this dose through completion of SRS, at which point I will give her a taper plan. She should also remain on the keppra until the lesions in question are proven controlled, which means 3 months post-treatment at the soonest. If her MRI is negative at that time I will taper her off of the keppra. With respect to the possible synchronous primary lung and colon cancer, she should receive chemoimmunotherapy (pending PD-L1 TPS) for the NSCLC as this entity takes oncologic priority. The small colon lesion, which is asymptomatic and non-obstructing could be dealt with at a later date if she eliot a good initial response to systemic therapy and it fails to respond in turn. We instructed the patient that if there were any questions,concerns or changes in clinical status in the interim to contact us. Recommendations SRS 27 Gy in 3 fractions with VMAT planning Simulation around time of repeat MRI scheduled for 08/09/21 Billing Statement Total time of [60] minutes was spent preparing for the visit [5], obtaining HPI [9], examining the patient [5], reviewing diagnostic tests [10], discussing management options [14], coordinating care [5], and writing this note [12]. IAN MCKENZIE MD Jul 31, 2021 12:59
== END ==
LOC: M ONCR 10:49
PROVIDERS: ATTEND General Practice
DX: C79.31 Secondary malignant neoplasm of brain (principal); C34.31 Malignant neoplasm of lower lobe, right bronchus or lung; C18.9 Malignant neoplasm of colon, unspecified; F17.210 Nicotine dependence, cigarettes, uncomplicated; J44.9 Chronic obstructive pulmonary disease, unspecified; E11.8 Type 2 diabetes mellitus with unspecified complications; F31.89 Other bipolar disorder; Z79.899 Other long term (current) drug therapy
CPT/HCPCS: 36415; 80053; 85025; G0463

== ENCOUNTER → 2021-08-14 | Outpatient (CLI) | payer MEDICARE ==
[~2021-08-14] MED LIST changes: +PROHANCE 279.3MG/ML 15ML VIAL As Ordered ONE
== END ==
LOC: M RAD 13:57
PROVIDERS: ATTEND Internal Medicine Hematology & Oncology
DX: C79.31 Secondary malignant neoplasm of brain (principal)
CPT/HCPCS: 70553; A9576

== ENCOUNTER → 2021-08-21 | Outpatient (CLI) | payer MEDICARE ==
[~2021-08-21] MED LIST changes: -PROHANCE 279.3MG/ML 15ML VIAL As Ordered ONE
== END ==
LOC: M PLARAD 08:18
PROVIDERS: ATTEND Physician Assistant
DX: Z53.9 Procedure and treatment not carried out, unspecified reason (principal); M51.36 Other intervertebral disc degeneration, lumbar region

== ENCOUNTER 2021-08-31 12:15 | Outpatient (RCR) | payer MEDICARE ==
[~2021-08-31 12:15] MED LIST changes: -LATU40TA PO; +LATU40TA2 PO
== END 2021-09-03 ==
LOC: M ONCR 12:15
PROVIDERS: ATTEND General Practice
DX: C79.31 Secondary malignant neoplasm of brain (principal)

== ENCOUNTER 2021-09-04 10:46 | Outpatient (RCR) | payer MEDICARE ==
[~2021-09-04 10:46] MED LIST changes: -D31000TA2 PO; +VITA100093 PO
[2021-09-06] MEDS ORDERED: HYDR100C PO (13:44)
[2021-09-14] MEDS ORDERED: CODE30TA PO (14:59)
[2021-09-17] MEDS ORDERED: CODE30TA PO (08:27)
[2021-09-26] MEDS ORDERED: HYDR100C PO (19:01)
[2021-09-26] MEDS ORDERED: CODE30TA PO (19:01)
== END 2021-10-01 ==
LOC: M ONCR 10:46
PROVIDERS: ATTEND General Practice
DX: C79.31 Secondary malignant neoplasm of brain (principal)

== ENCOUNTER 2021-09-26 16:06 | Inpatient (IN) | payer MEDICARE ==
[~2021-09-26] VITALS: Ht 165.1 cm; Wt 69.4 kg
[~2021-09-26 16:06] MED LIST changes: +CODE30TA PO; +HYDR100C PO
[2021-09-26] MEDS ORDERED: NS 1,000 ML IV ONE ×2 (16:50→20:40)
[2021-09-26 17:23] LABS: VENOUS BASE EXCESS 1.1 (-2.0-2.0); VENOUS HCO3 25.8 MEQ/L (23.0-27.0); VENOUS O2 SATURATION 81.2 % (60.0-80.0); VENOUS PARTIAL PRESSURE CO2 41.1 mmHg (38.0-50.0); VENOUS PARTIAL PRESSURE O2 45.8 mmHg (30.0-50.0); VENOUS PH 7.415 UNITS (7.330-7.430); VENOUS STANDARD HCO3 25.1 MEQ/L
[2021-09-26 17:27] LABS: BASO # 0.1 10^3/uL (0.0-0.2); BASO % 0.4 % (0.0-1.0); EOS # 0.1 10^3/uL (0.0-0.5); EOS % 0.3 % (0.0-3.0); HEMATOCRIT 33.3 % (36.0-47.0); HEMOGLOBIN 10.8 g/dl (12.0-15.5); LYMPH # 1.1 10^3/uL (1.5-5.0); MEAN CORPUSCULAR HEMOGLOBIN 29.8 pg (27.0-33.0); MEAN CORPUSCULAR HGB CONC 32.4 g/dl (32.0-36.5); NEUTROPHILS # 23.2 10^3/uL (1.5-8.5); NEUTROPHILS % 82.8 % (36.0-66.0); PLATELET COUNT, AUTOMATED 409 10^3/uL (150-450); RED BLOOD COUNT 3.62 10^6/uL (4.00-5.40)
[2021-09-26 17:52] LABS: MONO # 2.3 10^3/uL (0.0-0.8)
[2021-09-26 17:54] LABS: ALBUMIN 1.8 GM/DL (3.2-5.2); ALT/SGPT 53 U/L (12-78); BILIRUBIN,DIRECT 0.3 MG/DL (0.0-0.2); BILIRUBIN,TOTAL 0.4 MG/DL (0.2-1.0); BLOOD UREA NITROGEN 9 MG/DL (7-18); CARBON DIOXIDE LEVEL 26 MEQ/L (21-32); CHLORIDE LEVEL 100 MEQ/L (98-107); CREATININE FOR GFR 0.42 MG/DL (0.55-1.30); GLOMERULAR FILTRATION RATE > 60.0 (>45); GLUCOSE, FASTING 142 MG/DL (70-100); LIPASE 11 U/L (73-393); POTASSIUM SERUM 3.1 MEQ/L (3.5-5.1); SODIUM LEVEL 134 MEQ/L (136-145); TOTAL PROTEIN 5.3 GM/DL (6.4-8.2)
[2021-09-26 18:28] LABS: RSV AMPLIFICATION NEGATIVE (NEGATIVE)
[2021-09-26] MEDS ORDERED: PIPERACILLIN/TAZOBACTAM SOD 3.375 GM in D5W MINI-BAG PLUS 50 ML IV ONE (18:40)
[2021-09-26] MEDS ORDERED: HYDR100C PO (19:01)
[2021-09-26] MEDS ORDERED: CODE30TA PO (19:01)
[2021-09-26] MEDS ORDERED: HOME MED LIST COMPLETE! XX SCH (19:05)
[2021-09-26 20:01] LABS: PREALBUMIN 8.7 MG/DL (20.0-40.0)
[2021-09-26] MEDS ORDERED: NS 1,000 ML IV SCH (20:35)
[2021-09-26] MEDS: levETIRAcetam 250MG TABLET (KEPPRA) PO SCH (21:00)
[2021-09-26] MEDS: ASPIRIN 81MG ENTERIC TABLET PO SCH (21:00)
[2021-09-26] MEDS: HEPARIN SOD (PORCINE) 5000UNITS/ML 1ML VIAL/SYRINGE SC SCH (22:00)
[2021-09-26 23:30] VITALS: BP 160/78
[2021-09-27] MEDS ORDERED: UNRESOLVED CLARIFICATION ENTRY XX SCH (00:01)
[2021-09-27] MEDS ORDERED: DEXTROSE 50% 50 ML SYRINGE IV PRN (00:40)
[2021-09-27] MEDS ORDERED: GLUCAGON INJ 1MG VIAL SC PRN (00:40)
[2021-09-27] MEDS ORDERED: GLUCOSE 4GM CHEW TABLET PO PRN (00:40)
[2021-09-27] MEDS ORDERED: ALBUTEROL 90 MCG/ACT 8GM HFA INHALER INH PRN (00:50)
[2021-09-27] MEDS: dexameTHASONE 4 MG/ML 1ML VIAL (J1100 PER 1MG) IV SCH ×3 (01:17→17:18)
[2021-09-27] MEDS ORDERED: POTASSIUM CHLORIDE 10% LIQ 20 MEQ/15 ML UDC PO ONE (02:00)
[2021-09-27] MEDS: PIPERACILLIN/TAZOBACTAM SOD 3.375 GM in D5W MINI-BAG PLUS 50 ML IV SCH ×3 (04:40→21:03)
[2021-09-27] MEDS: HEPARIN SOD (PORCINE) 5000UNITS/ML 1ML VIAL/SYRINGE SC SCH ×3 (05:51→21:03)
[2021-09-27 06:00] VITALS: BP 147/68
[2021-09-27 06:14] LABS: BLOOD UREA NITROGEN 5 MG/DL (7-18); CALCIUM LEVEL 9.4 MG/DL (8.8-10.2); CARBON DIOXIDE LEVEL 21 MEQ/L (21-32); CHLORIDE LEVEL 107 MEQ/L (98-107); CREATININE FOR GFR 0.34 MG/DL (0.55-1.30); GLOMERULAR FILTRATION RATE > 60.0 (>45); GLUCOSE, FASTING 150 MG/DL (70-100); POTASSIUM SERUM 3.7 MEQ/L (3.5-5.1); SODIUM LEVEL 138 MEQ/L (136-145)
[2021-09-27] MEDS: HumaLOG INSULIN (NovoLOG) PER UNIT SC SCH ×4 (07:30→20:51)
[2021-09-27] MEDS ORDERED: metFORMIN XR 500MG TAB *GLUCOPHAGE XR PO SCH (08:00)
[2021-09-27] MEDS: levETIRAcetam 250MG TABLET (KEPPRA) PO SCH ×2 (10:35→21:04)
[2021-09-27] MEDS: hydrOXYzine 50 MG TAB PO SCH ×3 (10:36→21:04)
[2021-09-27 14:00] VITALS: BP 127/63
[2021-09-27 20:02] VITALS: BP 152/84
[2021-09-27] MEDS: VITAMIN D 1,000 INTERNATIONAL UNITS TABLET PO SCH (21:04)
[2021-09-27] MEDS: QUEtiapine FUMARATE 100 MG TAB PO SCH (21:04)
[2021-09-27] MEDS: ASPIRIN 81MG ENTERIC TABLET PO SCH (21:04)
[2021-09-27] MEDS: QUEtiapine FUMARATE 200 MG TAB PO SCH (21:04)
[2021-09-27] MEDS: traZODone 100 MG TAB PO SCH (21:04)
[2021-09-27] MEDS: ATORVASTATIN 20 MG TAB PO SCH (21:05)
[2021-09-28] MEDS: dexameTHASONE 4 MG/ML 1ML VIAL (J1100 PER 1MG) IV SCH ×2 (01:56→08:56)
[2021-09-28] MEDS: PIPERACILLIN/TAZOBACTAM SOD 3.375 GM in D5W MINI-BAG PLUS 50 ML IV SCH ×3 (04:18→21:21)
[2021-09-28] MEDS: HEPARIN SOD (PORCINE) 5000UNITS/ML 1ML VIAL/SYRINGE SC SCH ×3 (04:46→21:21)
[2021-09-28] MEDS: ACETAMINOPHEN 325 MG TAB PO PRN ×3 (04:47→21:19)
[2021-09-28 05:22] VITALS: BP 139/68
[2021-09-28] MEDS: HumaLOG INSULIN (NovoLOG) PER UNIT SC SCH ×4 (08:55→21:20)
[2021-09-28] MEDS: hydrOXYzine 50 MG TAB PO SCH ×3 (08:55→21:20)
[2021-09-28] MEDS: levETIRAcetam 250MG TABLET (KEPPRA) PO SCH ×2 (08:55→21:18)
[2021-09-28 08:57] LABS: HEMATOCRIT 29.3 % (36.0-47.0); HEMOGLOBIN 9.5 g/dl (12.0-15.5); MEAN CORPUSCULAR HEMOGLOBIN 30.1 pg (27.0-33.0); MEAN CORPUSCULAR HGB CONC 32.4 g/dl (32.0-36.5); MEAN CORPUSCULAR VOLUME 92.7 fl (80.0-96.0); PLATELET COUNT, AUTOMATED 448 10^3/uL (150-450); RED BLOOD COUNT 3.16 10^6/uL (4.00-5.40); WHITE BLOOD COUNT 25.7 10^3/uL (4.0-10.0)
[2021-09-28 09:19] LABS: BLOOD UREA NITROGEN 6 MG/DL (7-18); CALCIUM LEVEL 9.5 MG/DL (8.8-10.2); CARBON DIOXIDE LEVEL 29 MEQ/L (21-32); CHLORIDE LEVEL 107 MEQ/L (98-107); CREATININE FOR GFR 0.44 MG/DL (0.55-1.30); GLOMERULAR FILTRATION RATE > 60.0 (>45); GLUCOSE, FASTING 246 MG/DL (70-100); POTASSIUM SERUM 3.2 MEQ/L (3.5-5.1); SODIUM LEVEL 142 MEQ/L (136-145)
[2021-09-28] MEDS ORDERED: POTASSIUM CHLORIDE 10MEQ SR TABLET PO ONE (11:20)
[2021-09-28 14:00] VITALS: BP 133/64
[2021-09-28] MEDS ORDERED: RAMELTEON 8 MG TAB (ROZEREM) PO PRN (19:15)
[2021-09-28] MEDS ORDERED: hydrOXYzine 25 MG TAB PO PRN (19:15)
[2021-09-28 20:44] VITALS: BP 121/66
[2021-09-28] MEDS: ATORVASTATIN 20 MG TAB PO SCH (21:18)
[2021-09-28] MEDS: traZODone 100 MG TAB PO SCH (21:18)
[2021-09-28] MEDS: QUEtiapine FUMARATE 100 MG TAB PO SCH (21:19)
[2021-09-28] MEDS: VITAMIN D 1,000 INTERNATIONAL UNITS TABLET PO SCH (21:19)
[2021-09-28] MEDS: QUEtiapine FUMARATE 200 MG TAB PO SCH (21:19)
[2021-09-28] MEDS: ASPIRIN 81MG ENTERIC TABLET PO SCH (21:20)
[2021-09-28 22:00] VITALS: BP 119/64
[2021-09-29] MEDS: PIPERACILLIN/TAZOBACTAM SOD 3.375 GM in D5W MINI-BAG PLUS 50 ML IV SCH ×3 (03:40→19:41)
[2021-09-29] MEDS: HEPARIN SOD (PORCINE) 5000UNITS/ML 1ML VIAL/SYRINGE SC SCH ×3 (05:07→20:50)
[2021-09-29 06:00] VITALS: BP 121/59
[2021-09-29 06:26] LABS: HEMATOCRIT 30.1 % (36.0-47.0); HEMOGLOBIN 9.7 g/dl (12.0-15.5); MEAN CORPUSCULAR HGB CONC 32.2 g/dl (32.0-36.5); MEAN CORPUSCULAR VOLUME 93.2 fl (80.0-96.0); PLATELET COUNT, AUTOMATED 492 10^3/uL (150-450); RED BLOOD COUNT 3.23 10^6/uL (4.00-5.40); WHITE BLOOD COUNT 21.4 10^3/uL (4.0-10.0)
[2021-09-29 06:51] LABS: BLOOD UREA NITROGEN 8 MG/DL (7-18); CALCIUM LEVEL 9.3 MG/DL (8.8-10.2); CARBON DIOXIDE LEVEL 25 MEQ/L (21-32); CHLORIDE LEVEL 106 MEQ/L (98-107); CREATININE FOR GFR 0.59 MG/DL (0.55-1.30); GLOMERULAR FILTRATION RATE > 60.0 (>45); GLUCOSE, FASTING 362 MG/DL (70-100); POTASSIUM SERUM 3.6 MEQ/L (3.5-5.1); SODIUM LEVEL 137 MEQ/L (136-145)
[2021-09-29] MEDS: HumaLOG INSULIN (NovoLOG) PER UNIT SC SCH ×4 (08:25→19:41)
[2021-09-29] MEDS: levETIRAcetam 250MG TABLET (KEPPRA) PO SCH ×2 (08:26→20:49)
[2021-09-29] MEDS: hydrOXYzine 50 MG TAB PO SCH ×3 (08:26→20:49)
[2021-09-29] MEDS ORDERED: ISOVUE-370 76% 100ML VIAL As Ordered ONE ×2 (09:48→11:05)
[2021-09-29 14:00] VITALS: BP 120/59
[2021-09-29] MEDS: traZODone 100 MG TAB PO SCH (20:48)
[2021-09-29] MEDS: ATORVASTATIN 20 MG TAB PO SCH (20:48)
[2021-09-29] MEDS: ACETAMINOPHEN 325 MG TAB PO PRN (20:49)
[2021-09-29] MEDS: VITAMIN D 1,000 INTERNATIONAL UNITS TABLET PO SCH (20:49)
[2021-09-29] MEDS: ASPIRIN 81MG ENTERIC TABLET PO SCH (20:49)
[2021-09-29] MEDS: QUEtiapine FUMARATE 100 MG TAB PO SCH (20:49)
[2021-09-29] MEDS: QUEtiapine FUMARATE 200 MG TAB PO SCH (20:49)
[2021-09-29] MEDS: zolPIDEM TARTRATE 5 MG TAB PO PRN (20:49)
[2021-09-29 22:00] VITALS: BP_SYST 120; BP_DIAS 62; BP_DIAS 63
[2021-09-30] MEDS: PIPERACILLIN/TAZOBACTAM SOD 3.375 GM in D5W MINI-BAG PLUS 50 ML IV SCH ×3 (02:56→20:56)
[2021-09-30] MEDS: HEPARIN SOD (PORCINE) 5000UNITS/ML 1ML VIAL/SYRINGE SC SCH ×3 (05:10→20:59)
[2021-09-30 06:00] VITALS: BP 153/89
[2021-09-30 06:38] LABS: HEMATOCRIT 30.3 % (36.0-47.0); MEAN CORPUSCULAR HEMOGLOBIN 30.3 pg (27.0-33.0); MEAN CORPUSCULAR VOLUME 91.8 fl (80.0-96.0); PLATELET COUNT, AUTOMATED 503 10^3/uL (150-450); WHITE BLOOD COUNT 23.5 10^3/uL (4.0-10.0)
[2021-09-30 07:02] LABS: BLOOD UREA NITROGEN 8 MG/DL (7-18); CALCIUM LEVEL 8.9 MG/DL (8.8-10.2); CARBON DIOXIDE LEVEL 28 MEQ/L (21-32); CHLORIDE LEVEL 106 MEQ/L (98-107); CREATININE FOR GFR 0.55 MG/DL (0.55-1.30); GLOMERULAR FILTRATION RATE > 60.0 (>45); GLUCOSE, FASTING 329 MG/DL (70-100); POTASSIUM SERUM 3.7 MEQ/L (3.5-5.1); SODIUM LEVEL 139 MEQ/L (136-145)
[2021-09-30] MEDS: levETIRAcetam 250MG TABLET (KEPPRA) PO SCH ×2 (08:08→20:58)
[2021-09-30] MEDS: HumaLOG INSULIN (NovoLOG) PER UNIT SC SCH ×4 (08:08→20:59)
[2021-09-30] MEDS: hydrOXYzine 50 MG TAB PO SCH ×3 (08:08→20:58)
[2021-09-30] MEDS: QUEtiapine FUMARATE 100 MG TAB PO SCH (20:57)
[2021-09-30] MEDS: QUEtiapine FUMARATE 200 MG TAB PO SCH (20:57)
[2021-09-30] MEDS: ACETAMINOPHEN 325 MG TAB PO PRN (20:58)
[2021-09-30] MEDS: ATORVASTATIN 20 MG TAB PO SCH (20:58)
[2021-09-30] MEDS: zolPIDEM TARTRATE 5 MG TAB PO PRN (20:58)
[2021-09-30] MEDS: traZODone 100 MG TAB PO SCH (20:58)
[2021-09-30] MEDS: VITAMIN D 1,000 INTERNATIONAL UNITS TABLET PO SCH (20:58)
[2021-09-30] MEDS: ASPIRIN 81MG ENTERIC TABLET PO SCH (20:58)
[2021-09-30 22:00] VITALS: BP 113/59
[2021-10-01] MEDS: PIPERACILLIN/TAZOBACTAM SOD 3.375 GM in D5W MINI-BAG PLUS 50 ML IV SCH ×3 (03:41→20:02)
[2021-10-01 06:08] LABS: HEMATOCRIT 32.9 % (36.0-47.0); HEMOGLOBIN 10.7 g/dl (12.0-15.5); MEAN CORPUSCULAR HEMOGLOBIN 30.3 pg (27.0-33.0); MEAN CORPUSCULAR HGB CONC 32.5 g/dl (32.0-36.5); MEAN CORPUSCULAR VOLUME 93.2 fl (80.0-96.0); PLATELET COUNT, AUTOMATED 534 10^3/uL (150-450); RED BLOOD COUNT 3.53 10^6/uL (4.00-5.40); WHITE BLOOD COUNT 25.7 10^3/uL (4.0-10.0)
[2021-10-01 06:30] VITALS: BP 132/86
[2021-10-01] MEDS: HEPARIN SOD (PORCINE) 5000UNITS/ML 1ML VIAL/SYRINGE SC SCH ×3 (06:35→20:57)
[2021-10-01 06:40] LABS: BLOOD UREA NITROGEN 12 MG/DL (7-18); CALCIUM LEVEL 9.3 MG/DL (8.8-10.2); CARBON DIOXIDE LEVEL 26 MEQ/L (21-32); CHLORIDE LEVEL 103 MEQ/L (98-107); GLOMERULAR FILTRATION RATE > 60.0 (>45); GLUCOSE, FASTING 330 MG/DL (70-100); POTASSIUM SERUM 4.4 MEQ/L (3.5-5.1); SODIUM LEVEL 137 MEQ/L (136-145)
[2021-10-01] MEDS: HumaLOG INSULIN (NovoLOG) PER UNIT SC SCH ×4 (08:48→20:58)
[2021-10-01] MEDS: levETIRAcetam 250MG TABLET (KEPPRA) PO SCH ×2 (08:48→20:56)
[2021-10-01] MEDS: hydrOXYzine 50 MG TAB PO SCH ×3 (08:48→20:57)
[2021-10-01 14:00] VITALS: BP 115/55
[2021-10-01] MEDS: traZODone 100 MG TAB PO SCH (20:56)
[2021-10-01] MEDS: ATORVASTATIN 20 MG TAB PO SCH (20:56)
[2021-10-01] MEDS: ACETAMINOPHEN 325 MG TAB PO PRN (20:57)
[2021-10-01] MEDS: QUEtiapine FUMARATE 100 MG TAB PO SCH (20:57)
[2021-10-01] MEDS: QUEtiapine FUMARATE 200 MG TAB PO SCH (20:57)
[2021-10-01] MEDS: VITAMIN D 1,000 INTERNATIONAL UNITS TABLET PO SCH (20:57)
[2021-10-01] MEDS: RAMELTEON 8 MG TAB (ROZEREM) PO SCH (20:58)
[2021-10-01] MEDS: ASPIRIN 81MG ENTERIC TABLET PO SCH (20:58)
[2021-10-01 22:00] VITALS: BP 122/70
[2021-10-02] MEDS: PIPERACILLIN/TAZOBACTAM SOD 3.375 GM in D5W MINI-BAG PLUS 50 ML IV SCH ×3 (04:48→21:10)
[2021-10-02 06:00] VITALS: BP 124/68
[2021-10-02] MEDS: HEPARIN SOD (PORCINE) 5000UNITS/ML 1ML VIAL/SYRINGE SC SCH ×3 (06:00→21:11)
[2021-10-02 06:25] LABS: HEMATOCRIT 32.6 % (36.0-47.0); HEMOGLOBIN 10.5 g/dl (12.0-15.5); MEAN CORPUSCULAR HGB CONC 32.2 g/dl (32.0-36.5); MEAN CORPUSCULAR VOLUME 93.1 fl (80.0-96.0); PLATELET COUNT, AUTOMATED 555 10^3/uL (150-450)
[2021-10-02 06:30] LABS: WHITE BLOOD COUNT 31.1 10^3/uL (4.0-10.0)
[2021-10-02 06:44] LABS: BLOOD UREA NITROGEN 15 MG/DL (7-18); CALCIUM LEVEL 9.4 MG/DL (8.8-10.2); CARBON DIOXIDE LEVEL 28 MEQ/L (21-32); CHLORIDE LEVEL 104 MEQ/L (98-107); CREATININE FOR GFR 0.54 MG/DL (0.55-1.30); GLOMERULAR FILTRATION RATE > 60.0 (>45); GLUCOSE, FASTING 349 MG/DL (70-100); SODIUM LEVEL 138 MEQ/L (136-145)
[2021-10-02 08:30] VITALS: BP 136/82
[2021-10-02] MEDS: levETIRAcetam 250MG TABLET (KEPPRA) PO SCH ×2 (08:42→21:11)
[2021-10-02] MEDS: HumaLOG INSULIN (NovoLOG) PER UNIT SC SCH ×4 (08:42→21:10)
[2021-10-02] MEDS: hydrOXYzine 50 MG TAB PO SCH ×3 (08:42→21:11)
[2021-10-02] MEDS: ACETAMINOPHEN 325 MG TAB PO PRN ×2 (10:59→21:12)
[2021-10-02] MEDS ORDERED: PROHANCE 279.3MG/ML 15ML VIAL As Ordered ONE (11:57)
[2021-10-02 12:45] LABS: ERYTHROCYTE SEDIMENTATION RATE 67 mm/hr (0-30)
[2021-10-02 12:50] LABS: C REACTIVE PROTEIN QUANTITATIV 3.36 MG/DL (0.00-0.30)
[2021-10-02] MEDS: LEVEMIR (INSULIN DETEMIR) 1 UNITS/0.01ML SC SCH ×2 (13:43→21:10)
[2021-10-02 14:00] VITALS: BP 132/79
[2021-10-02] MEDS ORDERED: SENOKOT S TAB PO PRN (15:50)
[2021-10-02] MEDS ORDERED: BISACODYL 5 MG TAB PO PRN (15:50)
[2021-10-02] MEDS ORDERED: MOM 30ML SUSPENSION UDC PO PRN (15:50)
[2021-10-02] MEDS: ASPIRIN 81MG ENTERIC TABLET PO SCH (21:11)
[2021-10-02] MEDS: traZODone 100 MG TAB PO SCH (21:11)
[2021-10-02] MEDS: RAMELTEON 8 MG TAB (ROZEREM) PO SCH (21:11)
[2021-10-02] MEDS: ATORVASTATIN 20 MG TAB PO SCH (21:11)
[2021-10-02] MEDS: VITAMIN D 1,000 INTERNATIONAL UNITS TABLET PO SCH (21:12)
[2021-10-02] MEDS: QUEtiapine FUMARATE 200 MG TAB PO SCH (21:12)
[2021-10-02] MEDS: QUEtiapine FUMARATE 100 MG TAB PO SCH (21:12)
[2021-10-02 22:00] VITALS: BP 125/70
[2021-10-03] MEDS: PIPERACILLIN/TAZOBACTAM SOD 3.375 GM in D5W MINI-BAG PLUS 50 ML IV SCH (04:22)
[2021-10-03] MEDS: HEPARIN SOD (PORCINE) 5000UNITS/ML 1ML VIAL/SYRINGE SC SCH ×2 (04:32→13:05)
[2021-10-03] MEDS ORDERED: LEVEMIR (INSULIN DETEMIR) 1 UNITS/0.01ML SC ONE (05:20)
[2021-10-03] MEDS ORDERED: BD P31MI2 SC (05:31)
[2021-10-03] MEDS ORDERED: ALCO1MED8 XX (05:31)
[2021-10-03] MEDS ORDERED: PHAR1TES SC (05:31)
[2021-10-03] MEDS ORDERED: LEVE1INJ5 SC (05:31)
[2021-10-03] MEDS ORDERED: [UNRECOGNIZED DRUG - CODE] MC (05:31)
[2021-10-03] MEDS ORDERED: DECA4TAB PO ×2 (05:31)
[2021-10-03] MEDS ORDERED: BLOO-76 MC (05:31)
[2021-10-03 06:00] VITALS: BP 132/81
[2021-10-03] MEDS: levETIRAcetam 250MG TABLET (KEPPRA) PO SCH (08:12)
[2021-10-03] MEDS: hydrOXYzine 50 MG TAB PO SCH (08:12)
[2021-10-03] MEDS: ACETAMINOPHEN 325 MG TAB PO PRN (08:13)
[2021-10-03] MEDS: HumaLOG INSULIN (NovoLOG) PER UNIT SC SCH ×2 (08:13→13:08)
[2021-10-03 11:20] LABS: HEMATOCRIT 33.3 % (36.0-47.0); HEMOGLOBIN 10.7 g/dl (12.0-15.5); MEAN CORPUSCULAR HEMOGLOBIN 30.1 pg (27.0-33.0); MEAN CORPUSCULAR HGB CONC 32.1 g/dl (32.0-36.5); MEAN CORPUSCULAR VOLUME 93.5 fl (80.0-96.0); PLATELET COUNT, AUTOMATED 537 10^3/uL (150-450); RED BLOOD COUNT 3.56 10^6/uL (4.00-5.40)
[2021-10-03 11:21] LABS: WHITE BLOOD COUNT 34.4 10^3/uL (4.0-10.0)
[2021-10-03] MEDS ORDERED: VENTAER INH (11:39)
[2021-10-03 11:53] LABS: ANISOCYTOSIS 1+; LYMPHOCYTES 5 % (16-44); METAMYELOCYTES 2 % (0-0); MONOCYTES 6 % (0-5); MYELOCYTES 3 % (0-0); NEUTROPHILS 79 % (28-66)
[2021-10-03 11:54] LABS: OVALOCYTES 1+; PLATELET ESTIMATE INCREASED (NORMAL); TEAR DROP CELLS 1+
[2021-10-03 11:56] LABS: ERYTHROCYTE SEDIMENTATION RATE 63 mm/hr (0-30)
== END 2021-10-03 14:00 | disposition home health service (06) | DRG 871 ==
LOC: M ED 16:06 → M ED INP 20:13 → M MS5PR 23:51
PROVIDERS: ADMIT Internal Medicine; ATTEND General Practice
DX: A41.9 Sepsis, unspecified organism (principal); G93.41 Metabolic encephalopathy; N39.0 Urinary tract infection, site not specified; C79.31 Secondary malignant neoplasm of brain; J44.9 Chronic obstructive pulmonary disease, unspecified; E11.65 Type 2 diabetes mellitus with hyperglycemia; C80.1 Malignant (primary) neoplasm, unspecified; Z92.3 Personal history of irradiation; F31.9 Bipolar disorder, unspecified; E87.6 Hypokalemia; Z79.899 Other long term (current) drug therapy; Z79.82 Long term (current) use of aspirin; Z79.4 Long term (current) use of insulin; F17.210 Nicotine dependence, cigarettes, uncomplicated; Z66 Do not resuscitate

== ENCOUNTER 2021-10-07 07:25 | Inpatient (IN) | payer MEDICARE ==
[~2021-10-07] VITALS: Ht 167.6 cm; Wt 65.6 kg
[~2021-10-07 07:25] MED LIST changes: +ALCO1MED8 XX; +BD P31MI2 SC; +BLOO-76 MC; +DECA4TAB PO; +LEVE1INJ5 SC; +PHAR1TES SC; +VENTAER INH; +[UNRECOGNIZED DRUG - CODE] MC
[2021-10-07] MEDS ORDERED: MIDAZOLAM INJ 2MG/2ML VIAL (J2250 PER 1MG) IV STA (07:41)
[2021-10-07] MEDS ORDERED: NS 1,000 ML IV SCH (08:05)
[2021-10-07 08:10] LABS: HEMATOCRIT 36.8 % (36.0-47.0); HEMOGLOBIN 11.9 g/dl (12.0-15.5); MEAN CORPUSCULAR HEMOGLOBIN 29.6 pg (27.0-33.0); MEAN CORPUSCULAR HGB CONC 32.3 g/dl (32.0-36.5); MEAN CORPUSCULAR VOLUME 91.5 fl (80.0-96.0); PLATELET COUNT, AUTOMATED 464 10^3/uL (150-450); RED BLOOD COUNT 4.02 10^6/uL (4.00-5.40)
[2021-10-07 08:10] LABS: VENOUS BASE EXCESS 0.7 (-2.0-2.0); VENOUS HCO3 25.4 MEQ/L (23.0-27.0); VENOUS O2 SATURATION 76.1 % (60.0-80.0); VENOUS STANDARD HCO3 24.6 MEQ/L; VENOUS TOTAL CO2 26.7 MEQ/L (24.0-28.0)
[2021-10-07 08:14] LABS: WHITE BLOOD COUNT 60.7 10^3/uL (4.0-10.0)
[2021-10-07 08:35] LABS: OSMOLALITY SERUM 282 MOSM/KG (280-301)
[2021-10-07 08:44] LABS: MONOCYTES 4 % (0-5); NEUTROPHILS 91 % (28-66)
[2021-10-07 08:45] LABS: PLATELET CLUMPS SMALL AMT; PLATELET ESTIMATE INCREASED (NORMAL)
[2021-10-07 08:46] LABS: POLYCHROMASIA 1+; TEAR DROP CELLS 1+
[2021-10-07 08:48] LABS: ANISOCYTOSIS 1+; SCHISTOCYTES 1+
[2021-10-07 08:53] LABS: RSV AMPLIFICATION NEGATIVE (NEGATIVE)
[2021-10-07 08:57] LABS: ALT/SGPT 95 U/L (12-78); BILIRUBIN,DIRECT 0.4 MG/DL (0.0-0.2); BILIRUBIN,TOTAL 0.7 MG/DL (0.2-1.0); BLOOD UREA NITROGEN 22 MG/DL (7-18); CALCIUM LEVEL 11.7 MG/DL (8.8-10.2); CARBON DIOXIDE LEVEL 25 MEQ/L (21-32); CHLORIDE LEVEL 94 MEQ/L (98-107); ETHYL ALCOHOL (ETHANOL) < 0.003 % (0.000-0.010); GLOMERULAR FILTRATION RATE > 60.0 (>45); GLUCOSE, FASTING 212 MG/DL (70-100); SODIUM LEVEL 130 MEQ/L (136-145); TOTAL PROTEIN 6.5 GM/DL (6.4-8.2)
[2021-10-07] MEDS ORDERED: LEVE1INJ5 SC (09:59)
[2021-10-07] MEDS ORDERED: HOME MED LIST COMPLETE! XX SCH (10:00)
[2021-10-07] MEDS ORDERED: GLUCAGON INJ 1MG VIAL SC PRN (10:00)
[2021-10-07] MEDS ORDERED: DEXTROSE 50% 50 ML SYRINGE IV PRN (10:00)
[2021-10-07] MEDS ORDERED: GLUCOSE 4GM CHEW TABLET PO PRN (10:00)
[2021-10-07 10:38] LABS: AMPHETAMINES LEVEL URINE NEGATIVE (NEGATIVE); BARBITURATES URINE NEGATIVE (NEGATIVE); BENZODIAZEPINES URINE NEGATIVE (NEGATIVE); CANNABINOIDS URINE NEGATIVE (NEGATIVE); COCAINE METABOLITE URINE NEGATIVE (NEGATIVE); METHADONE URINE NEGATIVE (NEGATIVE); PHENCYCLIDINE URINE NEGATIVE (NEGATIVE)
[2021-10-07] MEDS: NS 1,000 ML IV SCH ×2 (10:44→20:47)
[2021-10-07] MEDS: PIPERACILLIN/TAZOBACTAM SOD 3.375 GM in D5W MINI-BAG PLUS 50 ML IV SCH ×2 (10:54→17:55)
[2021-10-07 10:59] LABS: OPIATES URINE POSITIVE (NEGATIVE)
[2021-10-07 11:30] VITALS: BP 137/71
[2021-10-07] MEDS ORDERED: ACETAMINOPHEN 325 MG TAB PO PRN (11:30)
[2021-10-07] MEDS ORDERED: ALBUTEROL 90 MCG/ACT 8GM HFA INHALER INH PRN (11:30)
[2021-10-07] MEDS: levETIRAcetam 250MG TABLET (KEPPRA) PO SCH ×2 (12:29→20:46)
[2021-10-07] MEDS: LACTOBACILLUS ACIDOPHILUS CAP (BACID) PO SCH ×3 (12:29→20:47)
[2021-10-07] MEDS: HumaLOG INSULIN (NovoLOG) PER UNIT SC SCH ×3 (12:30→20:45)
[2021-10-07] MEDS ORDERED: VANCOMYCIN HCL 1,000 MG, VIAL MATE ADAPTER 1 EACH in NS 250 ML IV ONE (13:00)
[2021-10-07 14:00] VITALS: BP_SYST 116; BP_SYST 132; BP_DIAS 63; BP_DIAS 69
[2021-10-07] MEDS: ACETAMINOPHEN TAB 650MG DOSE (2X325MG) PO PRN (14:26)
[2021-10-07] MEDS: VANCOMYCIN ORAL SOL 250MG/5ML ORAL SYRINGE PO SCH (17:55)
[2021-10-07] MEDS: VANCOMYCIN HCL 1,000 MG, VIAL MATE ADAPTER 1 EACH in NS 250 ML IV SCH (20:45)
[2021-10-07] MEDS: LEVEMIR (INSULIN DETEMIR) 1 UNITS/0.01ML SC SCH (20:45)
[2021-10-07] MEDS: traZODone 100 MG TAB PO SCH (20:46)
[2021-10-07] MEDS: ASPIRIN 81MG ENTERIC TABLET PO SCH (20:46)
[2021-10-07] MEDS: ATORVASTATIN 20 MG TAB PO SCH (20:46)
[2021-10-07] MEDS: QUEtiapine FUMARATE 100 MG TAB PO SCH (20:46)
[2021-10-07] MEDS: VITAMIN D 1,000 INTERNATIONAL UNITS TABLET PO SCH (20:47)
[2021-10-07 22:00] VITALS: BP 138/67
[2021-10-08] MEDS: NS 1,000 ML IV SCH (00:03)
[2021-10-08] MEDS: PIPERACILLIN/TAZOBACTAM SOD 3.375 GM in D5W MINI-BAG PLUS 50 ML IV SCH ×4 (00:03→17:50)
[2021-10-08] MEDS: VANCOMYCIN ORAL SOL 250MG/5ML ORAL SYRINGE PO SCH ×2 (00:03→05:41)
[2021-10-08] MEDS ORDERED: LORazepam 2 MG/ML VIAL IV STA ×2 (05:05→18:53)
[2021-10-08 05:10] LABS: VENOUS BASE EXCESS 2.3 (-2.0-2.0); VENOUS HCO3 26.5 MEQ/L (23.0-27.0); VENOUS O2 SATURATION 47.9 % (60.0-80.0); VENOUS PARTIAL PRESSURE CO2 39.6 mmHg (38.0-50.0); VENOUS PARTIAL PRESSURE O2 25.9 mmHg (30.0-50.0); VENOUS PH 7.444 UNITS (7.330-7.430); VENOUS STANDARD HCO3 25.6 MEQ/L; VENOUS TOTAL CO2 27.8 MEQ/L (24.0-28.0)
[2021-10-08 05:16] LABS: BASO # 0.2 10^3/uL (0.0-0.2); BASO % 0.3 % (0.0-1.0); EOS # 0.1 10^3/uL (0.0-0.5); EOS % 0.1 % (0.0-3.0); HEMATOCRIT 32.7 % (36.0-47.0); HEMOGLOBIN 10.7 g/dl (12.0-15.5); LYMPH # 0.6 10^3/uL (1.5-5.0); LYMPH % 1.1 % (24.0-44.0); MEAN CORPUSCULAR HEMOGLOBIN 30.1 pg (27.0-33.0); MEAN CORPUSCULAR HGB CONC 32.7 g/dl (32.0-36.5); MEAN CORPUSCULAR VOLUME 92.1 fl (80.0-96.0); MONO % 7.8 % (2.0-8.0); NEUTROPHILS # 44.2 10^3/uL (1.5-8.5); NEUTROPHILS % 86.2 % (36.0-66.0); PLATELET COUNT, AUTOMATED 410 10^3/uL (150-450); RED BLOOD COUNT 3.55 10^6/uL (4.00-5.40)
[2021-10-08 05:45] LABS: CK-MB VALUE MASS < 1.0 NG/ML (<3.6); CPK CREATINE PHOSPHOKINASE 49 U/L (26-192); MB/CK RELATIVE INDEX 2.04 (< OR =4)
[2021-10-08 05:50] LABS: BLOOD UREA NITROGEN 13 MG/DL (7-18); CALCIUM LEVEL 11.4 MG/DL (8.8-10.2); CARBON DIOXIDE LEVEL 28 MEQ/L (21-32); CHLORIDE LEVEL 100 MEQ/L (98-107); CREATININE FOR GFR 0.68 MG/DL (0.55-1.30); GLOMERULAR FILTRATION RATE > 60.0 (>45); GLUCOSE, FASTING 50 MG/DL (70-100); MAGNESIUM LEVEL 1.3 MG/DL (1.8-2.4); SODIUM LEVEL 137 MEQ/L (136-145); WHITE BLOOD COUNT 51.3 10^3/uL (4.0-10.0)
[2021-10-08 06:04] VITALS: BP 124/60
[2021-10-08] MEDS ORDERED: NS 1,000 ML IV ONE (06:10)
[2021-10-08] MEDS ORDERED: POTASSIUM CHLORIDE 10MEQ SR TABLET PO ONE (07:15)
[2021-10-08] MEDS ORDERED: ISOVUE-370 76% 100ML VIAL As Ordered ONE (07:44)
[2021-10-08 08:00] VITALS: BP 132/73
[2021-10-08] MEDS: levETIRAcetam 250MG TABLET (KEPPRA) PO SCH ×2 (09:39→21:00)
[2021-10-08] MEDS: HumaLOG INSULIN (NovoLOG) PER UNIT SC SCH ×4 (09:39→20:43)
[2021-10-08] MEDS: LACTOBACILLUS ACIDOPHILUS CAP (BACID) PO SCH ×4 (09:40→21:00)
[2021-10-08] MEDS: MAG SULF 1GM/100ML (MAG RUN) 1 GM in IV 1 EA IV SCH ×2 (09:40→11:13)
[2021-10-08] MEDS: VANCOMYCIN HCL 1,000 MG, VIAL MATE ADAPTER 1 EACH in NS 250 ML IV SCH ×2 (09:40→23:28)
[2021-10-08 12:15] VITALS: BP 136/64
[2021-10-08 16:00] VITALS: BP 150/69
[2021-10-08] MEDS ORDERED: diphenhydrAMINE 50MG/ML VIAL (J1200) IV STA (18:52)
[2021-10-08] MEDS ORDERED: HALOPERIDOL 5MG/ML VIAL (J1630 PER 1) IV PRN (18:55)
[2021-10-08] MEDS ORDERED: diphenhydrAMINE 50MG/ML VIAL (J1200) IM PRN (18:55)
[2021-10-08] MEDS ORDERED: HALOPERIDOL 5MG/ML VIAL (J1630 PER 1) IV ONE (18:55)
[2021-10-08] MEDS ORDERED: LORazepam 2 MG/ML VIAL IV PRN (18:55)
[2021-10-08 20:25] VITALS: BP 123/58
[2021-10-08] MEDS: LEVEMIR (INSULIN DETEMIR) 1 UNITS/0.01ML SC SCH (20:43)
[2021-10-08] MEDS: QUEtiapine FUMARATE 100 MG TAB PO SCH (21:00)
[2021-10-08] MEDS: VITAMIN D 1,000 INTERNATIONAL UNITS TABLET PO SCH (21:00)
[2021-10-08] MEDS: ASPIRIN 81MG ENTERIC TABLET PO SCH (21:00)
[2021-10-08] MEDS: ATORVASTATIN 20 MG TAB PO SCH (21:00)
[2021-10-08] MEDS: traZODone 100 MG TAB PO SCH (21:00)
[2021-10-09] MEDS: PIPERACILLIN/TAZOBACTAM SOD 3.375 GM in D5W MINI-BAG PLUS 50 ML IV SCH ×5 (00:36→18:23)
[2021-10-09 00:37] VITALS: BP 109/56
[2021-10-09] MEDS ORDERED: levETIRAcetam INJection 750 MG in D5W 100 ML IV ONE (01:00)
[2021-10-09 04:50] VITALS: BP 143/62
[2021-10-09 08:00] VITALS: BP 123/59
[2021-10-09 08:05] LABS: BASO # 0.1 10^3/uL (0.0-0.2); BASO % 0.2 % (0.0-1.0); EOS # 0.6 10^3/uL (0.0-0.5); EOS % 1.6 % (0.0-3.0); HEMOGLOBIN 9.3 g/dl (12.0-15.5); LYMPH # 1.1 10^3/uL (1.5-5.0); LYMPH % 2.9 % (24.0-44.0); MEAN CORPUSCULAR HEMOGLOBIN 29.7 pg (27.0-33.0); MEAN CORPUSCULAR HGB CONC 32.1 g/dl (32.0-36.5); MEAN CORPUSCULAR VOLUME 92.7 fl (80.0-96.0); MONO % 7.1 % (2.0-8.0); NEUTROPHILS # 32.8 10^3/uL (1.5-8.5); PLATELET COUNT, AUTOMATED 367 10^3/uL (150-450); RED BLOOD COUNT 3.13 10^6/uL (4.00-5.40)
[2021-10-09] MEDS: levETIRAcetam 250MG TABLET (KEPPRA) PO SCH ×2 (08:20→21:05)
[2021-10-09] MEDS: HumaLOG INSULIN (NovoLOG) PER UNIT SC SCH ×4 (08:20→20:52)
[2021-10-09] MEDS: LACTOBACILLUS ACIDOPHILUS CAP (BACID) PO SCH ×4 (08:20→21:05)
[2021-10-09 08:32] LABS: MONO # 2.7 10^3/uL (0.0-0.8)
[2021-10-09 08:33] LABS: WHITE BLOOD COUNT 38.1 10^3/uL (4.0-10.0)
[2021-10-09 08:39] LABS: BLOOD UREA NITROGEN 9 MG/DL (7-18); CALCIUM LEVEL 10.3 MG/DL (8.8-10.2); CARBON DIOXIDE LEVEL 28 MEQ/L (21-32); CHLORIDE LEVEL 108 MEQ/L (98-107); CREATININE FOR GFR 0.63 MG/DL (0.55-1.30); GLOMERULAR FILTRATION RATE > 60.0 (>45); GLUCOSE, FASTING 136 MG/DL (70-100); POTASSIUM SERUM 2.8 MEQ/L (3.5-5.1); SODIUM LEVEL 143 MEQ/L (136-145); VANCOMYCIN LEVEL TROUGH 18.7 UG/ML (10.0-20.0)
[2021-10-09] MEDS ORDERED: POTASSIUM CHLORIDE 10MEQ SR TABLET PO ONE ×2 (09:00→17:30)
[2021-10-09 09:08] LABS: MAGNESIUM LEVEL 1.7 MG/DL (1.8-2.4)
[2021-10-09] MEDS: VANCOMYCIN HCL 1,000 MG, VIAL MATE ADAPTER 1 EACH in NS 250 ML IV SCH ×2 (11:21→23:13)
[2021-10-09] MEDS ORDERED: MAG SULF 1GM/100ML (MAG RUN) 1 GM in IV 1 EA IV ONE (12:00)
[2021-10-09 14:00] VITALS: BP 153/67
[2021-10-09 15:30] LABS: BLOOD UREA NITROGEN 9 MG/DL (7-18); CALCIUM LEVEL 10.7 MG/DL (8.8-10.2); CARBON DIOXIDE LEVEL 24 MEQ/L (21-32); CHLORIDE LEVEL 108 MEQ/L (98-107); CREATININE FOR GFR 0.71 MG/DL (0.55-1.30); GLOMERULAR FILTRATION RATE > 60.0 (>45); GLUCOSE, FASTING 126 MG/DL (70-100); POTASSIUM SERUM 3.1 MEQ/L (3.5-5.1); SODIUM LEVEL 139 MEQ/L (136-145)
[2021-10-09 16:00] VITALS: BP 153/67
[2021-10-09 20:15] VITALS: BP 125/61
[2021-10-09] MEDS: ASPIRIN 81MG ENTERIC TABLET PO SCH (21:05)
[2021-10-09] MEDS: ATORVASTATIN 20 MG TAB PO SCH (21:05)
[2021-10-09] MEDS: VITAMIN D 1,000 INTERNATIONAL UNITS TABLET PO SCH (21:05)
[2021-10-09] MEDS: QUEtiapine FUMARATE 100 MG TAB PO SCH (21:05)
[2021-10-09] MEDS: traZODone 100 MG TAB PO SCH (21:05)
[2021-10-09] MEDS: LEVEMIR (INSULIN DETEMIR) 1 UNITS/0.01ML SC SCH (21:06)
[2021-10-10] MEDS: PIPERACILLIN/TAZOBACTAM SOD 3.375 GM in D5W MINI-BAG PLUS 50 ML IV SCH ×4 (00:11→17:35)
[2021-10-10 04:00] VITALS: BP 157/60
[2021-10-10] MEDS: HumaLOG INSULIN (NovoLOG) PER UNIT SC SCH ×4 (07:30→20:14)
[2021-10-10 07:34] LABS: BASO # 0.1 10^3/uL (0.0-0.2); BASO % 0.2 % (0.0-1.0); EOS # 0.3 10^3/uL (0.0-0.5); EOS % 0.9 % (0.0-3.0); HEMATOCRIT 27.4 % (36.0-47.0); HEMOGLOBIN 8.6 g/dl (12.0-15.5); LYMPH # 0.8 10^3/uL (1.5-5.0); LYMPH % 2.5 % (24.0-44.0); MEAN CORPUSCULAR HEMOGLOBIN 29.3 pg (27.0-33.0); MEAN CORPUSCULAR HGB CONC 31.4 g/dl (32.0-36.5); MEAN CORPUSCULAR VOLUME 93.2 fl (80.0-96.0); MONO % 7.5 % (2.0-8.0); NEUTROPHILS % 84.9 % (36.0-66.0); PLATELET COUNT, AUTOMATED 325 10^3/uL (150-450); RED BLOOD COUNT 2.94 10^6/uL (4.00-5.40)
[2021-10-10 08:00] LABS: BLOOD UREA NITROGEN 10 MG/DL (7-18); CALCIUM LEVEL 10.5 MG/DL (8.8-10.2); CARBON DIOXIDE LEVEL 27 MEQ/L (21-32); CHLORIDE LEVEL 109 MEQ/L (98-107); CREATININE FOR GFR 0.63 MG/DL (0.55-1.30); GLOMERULAR FILTRATION RATE > 60.0 (>45); GLUCOSE, FASTING 51 MG/DL (70-100); MAGNESIUM LEVEL 1.7 MG/DL (1.8-2.4); POTASSIUM SERUM 3.2 MEQ/L (3.5-5.1); SODIUM LEVEL 142 MEQ/L (136-145)
[2021-10-10 08:11] VITALS: BP 156/60
[2021-10-10 08:12] LABS: MONO # 2.3 10^3/uL (0.0-0.8); WHITE BLOOD COUNT 30.7 10^3/uL (4.0-10.0)
[2021-10-10] MEDS: levETIRAcetam 250MG TABLET (KEPPRA) PO SCH ×2 (08:33→20:29)
[2021-10-10] MEDS: LACTOBACILLUS ACIDOPHILUS CAP (BACID) PO SCH ×4 (08:33→20:29)
[2021-10-10] MEDS: ACETAMINOPHEN TAB 650MG DOSE (2X325MG) PO PRN ×2 (08:34→20:29)
[2021-10-10] MEDS ORDERED: POTASSIUM CHLORIDE 10MEQ SR TABLET PO ONE (09:25)
[2021-10-10] MEDS ORDERED: MAG SULF 1GM/100ML (MAG RUN) 1 GM in IV 1 EA IV ONE (09:25)
[2021-10-10] MEDS: VANCOMYCIN HCL 1,000 MG, VIAL MATE ADAPTER 1 EACH in NS 250 ML IV SCH ×2 (11:06→23:09)
[2021-10-10 20:03] VITALS: BP 159/76
[2021-10-10] MEDS: LEVEMIR (INSULIN DETEMIR) 1 UNITS/0.01ML SC SCH (20:15)
[2021-10-10] MEDS: VITAMIN D 1,000 INTERNATIONAL UNITS TABLET PO SCH (20:28)
[2021-10-10] MEDS: ATORVASTATIN 20 MG TAB PO SCH (20:28)
[2021-10-10] MEDS: QUEtiapine FUMARATE 100 MG TAB PO SCH (20:28)
[2021-10-10] MEDS: ASPIRIN 81MG ENTERIC TABLET PO SCH (20:28)
[2021-10-10] MEDS: traZODone 100 MG TAB PO SCH (20:29)
[2021-10-10 22:54] VITALS: BP 110/55
[2021-10-11] MEDS: PIPERACILLIN/TAZOBACTAM SOD 3.375 GM in D5W MINI-BAG PLUS 50 ML IV SCH ×4 (00:48→18:19)
[2021-10-11 06:00] VITALS: BP 127/43
[2021-10-11 06:13] LABS: BASO # 0.1 10^3/uL (0.0-0.2); BASO % 0.2 % (0.0-1.0); EOS # 0.4 10^3/uL (0.0-0.5); EOS % 1.6 % (0.0-3.0); HEMATOCRIT 29.2 % (36.0-47.0); HEMOGLOBIN 9.3 g/dl (12.0-15.5); LYMPH # 1.4 10^3/uL (1.5-5.0); LYMPH % 5.6 % (24.0-44.0); MEAN CORPUSCULAR HEMOGLOBIN 29.7 pg (27.0-33.0); MEAN CORPUSCULAR HGB CONC 31.8 g/dl (32.0-36.5); MEAN CORPUSCULAR VOLUME 93.3 fl (80.0-96.0); MONO % 6.9 % (2.0-8.0); NEUTROPHILS # 21.2 10^3/uL (1.5-8.5); NEUTROPHILS % 83.4 % (36.0-66.0); PLATELET COUNT, AUTOMATED 347 10^3/uL (150-450); RED BLOOD COUNT 3.13 10^6/uL (4.00-5.40); WHITE BLOOD COUNT 25.5 10^3/uL (4.0-10.0)
[2021-10-11 06:43] LABS: BLOOD UREA NITROGEN 12 MG/DL (7-18); CARBON DIOXIDE LEVEL 26 MEQ/L (21-32); CHLORIDE LEVEL 112 MEQ/L (98-107); CREATININE FOR GFR 0.68 MG/DL (0.55-1.30); GLOMERULAR FILTRATION RATE > 60.0 (>45); GLUCOSE, FASTING 97 MG/DL (70-100); POTASSIUM SERUM 3.4 MEQ/L (3.5-5.1); SODIUM LEVEL 143 MEQ/L (136-145)
[2021-10-11 06:53] LABS: MONO # 1.8 10^3/uL (0.0-0.8)
[2021-10-11] MEDS: HumaLOG INSULIN (NovoLOG) PER UNIT SC SCH ×4 (07:30→21:06)
[2021-10-11] MEDS ORDERED: POTASSIUM CHLORIDE 10MEQ SR TABLET PO ONE (08:00)
[2021-10-11] MEDS: levETIRAcetam 250MG TABLET (KEPPRA) PO SCH ×2 (08:10→21:05)
[2021-10-11] MEDS: LACTOBACILLUS ACIDOPHILUS CAP (BACID) PO SCH ×4 (08:10→21:06)
[2021-10-11] MEDS: ACETAMINOPHEN TAB 650MG DOSE (2X325MG) PO PRN (08:10)
[2021-10-11] MEDS: VANCOMYCIN HCL 1,000 MG, VIAL MATE ADAPTER 1 EACH in NS 250 ML IV SCH ×2 (12:10→23:02)
[2021-10-11 14:00] VITALS: BP 144/74
[2021-10-11 20:41] VITALS: BP 141/72
[2021-10-11] MEDS ORDERED: LEVEMIR (INSULIN DETEMIR) 1 UNITS/0.01ML SC SCH (21:00)
[2021-10-11] MEDS: QUEtiapine FUMARATE 100 MG TAB PO SCH (21:05)
[2021-10-11] MEDS: ATORVASTATIN 20 MG TAB PO SCH (21:05)
[2021-10-11] MEDS: ASPIRIN 81MG ENTERIC TABLET PO SCH (21:06)
[2021-10-11] MEDS: traZODone 100 MG TAB PO SCH (21:06)
[2021-10-11] MEDS: VITAMIN D 1,000 INTERNATIONAL UNITS TABLET PO SCH (21:06)
[2021-10-11] MEDS: NORCO, ANEXSIA 5/325MG TABLET (HYDROcodone/ACETAMINOPHEN) PO PRN (21:19)
[2021-10-12] MEDS: PIPERACILLIN/TAZOBACTAM SOD 3.375 GM in D5W MINI-BAG PLUS 50 ML IV SCH ×3 (00:12→11:53)
[2021-10-12 06:15] VITALS: BP 137/71
[2021-10-12 06:34] LABS: BASO % 0.2 % (0.0-1.0); EOS # 0.4 10^3/uL (0.0-0.5); EOS % 2.1 % (0.0-3.0); HEMATOCRIT 27.8 % (36.0-47.0); HEMOGLOBIN 8.9 g/dl (12.0-15.5); LYMPH # 1.4 10^3/uL (1.5-5.0); LYMPH % 6.7 % (24.0-44.0); MEAN CORPUSCULAR HEMOGLOBIN 29.9 pg (27.0-33.0); MEAN CORPUSCULAR VOLUME 93.3 fl (80.0-96.0); MONO % 7.8 % (2.0-8.0); NEUTROPHILS # 17.4 10^3/uL (1.5-8.5); NEUTROPHILS % 81.8 % (36.0-66.0); PLATELET COUNT, AUTOMATED 298 10^3/uL (150-450); RED BLOOD COUNT 2.98 10^6/uL (4.00-5.40); WHITE BLOOD COUNT 21.3 10^3/uL (4.0-10.0)
[2021-10-12 06:50] LABS: BLOOD UREA NITROGEN 10 MG/DL (7-18); CALCIUM LEVEL 9.9 MG/DL (8.8-10.2); CARBON DIOXIDE LEVEL 28 MEQ/L (21-32); CHLORIDE LEVEL 110 MEQ/L (98-107); CREATININE FOR GFR 0.64 MG/DL (0.55-1.30); GLOMERULAR FILTRATION RATE > 60.0 (>45); GLUCOSE, FASTING 99 MG/DL (70-100); POTASSIUM SERUM 3.4 MEQ/L (3.5-5.1); SODIUM LEVEL 145 MEQ/L (136-145)
[2021-10-12 07:01] LABS: MONO # 1.7 10^3/uL (0.0-0.8)
[2021-10-12] MEDS: HumaLOG INSULIN (NovoLOG) PER UNIT SC SCH ×2 (07:30→13:15)
[2021-10-12] MEDS: LACTOBACILLUS ACIDOPHILUS CAP (BACID) PO SCH ×2 (09:16→13:15)
[2021-10-12] MEDS: levETIRAcetam 250MG TABLET (KEPPRA) PO SCH (09:17)
[2021-10-12] MEDS: NORCO, ANEXSIA 5/325MG TABLET (HYDROcodone/ACETAMINOPHEN) PO PRN (09:23)
[2021-10-12] MEDS: VANCOMYCIN HCL 1,000 MG, VIAL MATE ADAPTER 1 EACH in NS 250 ML IV SCH (10:01)
[2021-10-12] MEDS ORDERED: POTASSIUM CHLORIDE 10MEQ SR TABLET PO ONE (10:50)
[2021-10-12] MEDS: ACETAMINOPHEN TAB 650MG DOSE (2X325MG) PO PRN ×2 (12:02→20:00)
[2021-10-12 14:00] VITALS: BP 134/69
[2021-10-12] MEDS ORDERED: LORazepam 1 MG TAB PO PRN (14:50)
[2021-10-12] MEDS ORDERED: SCOPOLAMINE 1MG TRANSDERMAL PATCH TOP PRN (14:50)
[2021-10-12] MEDS ORDERED: ONDANSETRON 4 MG ORAL DISINTEGRATING TAB PO PRN (14:50)
[2021-10-12] MEDS: traZODone 100 MG TAB PO SCH (20:00)
[2021-10-12] MEDS: QUEtiapine FUMARATE 100 MG TAB PO SCH (20:00)
[2021-10-13 06:31] LABS: BASO % 0.2 % (0.0-1.0); EOS # 0.4 10^3/uL (0.0-0.5); EOS % 2.2 % (0.0-3.0); HEMATOCRIT 27.6 % (36.0-47.0); HEMOGLOBIN 8.8 g/dl (12.0-15.5); LYMPH # 1.1 10^3/uL (1.5-5.0); LYMPH % 5.8 % (24.0-44.0); MEAN CORPUSCULAR HEMOGLOBIN 29.5 pg (27.0-33.0); MEAN CORPUSCULAR HGB CONC 31.9 g/dl (32.0-36.5); MEAN CORPUSCULAR VOLUME 92.6 fl (80.0-96.0); MONO # 1.3 10^3/uL (0.0-0.8); MONO % 6.4 % (2.0-8.0); NEUTROPHILS # 16.5 10^3/uL (1.5-8.5); PLATELET COUNT, AUTOMATED 290 10^3/uL (150-450); RED BLOOD COUNT 2.98 10^6/uL (4.00-5.40); WHITE BLOOD COUNT 19.7 10^3/uL (4.0-10.0)
[2021-10-13 06:44] LABS: BLOOD UREA NITROGEN 11 MG/DL (7-18); CALCIUM LEVEL 10.4 MG/DL (8.8-10.2); CARBON DIOXIDE LEVEL 24 MEQ/L (21-32); CHLORIDE LEVEL 110 MEQ/L (98-107); CREATININE FOR GFR 0.66 MG/DL (0.55-1.30); GLOMERULAR FILTRATION RATE > 60.0 (>45); GLUCOSE, FASTING 169 MG/DL (70-100); POTASSIUM SERUM 3.7 MEQ/L (3.5-5.1); SODIUM LEVEL 141 MEQ/L (136-145)
[2021-10-13] MEDS: MORPHINE 10MG/0.5ML ORAL CONCENTRATE SOLUTION U/D SL PRN (11:57)
[2021-10-13] MEDS: QUEtiapine FUMARATE 100 MG TAB PO SCH (20:17)
[2021-10-13] MEDS: traZODone 100 MG TAB PO SCH (20:17)
[2021-10-14] MEDS: MORPHINE 10MG/0.5ML ORAL CONCENTRATE SOLUTION U/D SL PRN ×2 (17:36→20:07)
[2021-10-14] MEDS: traZODone 100 MG TAB PO SCH (20:01)
[2021-10-14] MEDS: QUEtiapine FUMARATE 100 MG TAB PO SCH (20:01)
[2021-10-15] MEDS: MORPHINE 10MG/0.5ML ORAL CONCENTRATE SOLUTION U/D SL PRN (13:44)
[2021-10-15] MEDS: traZODone 100 MG TAB PO SCH (20:07)
[2021-10-15] MEDS: QUEtiapine FUMARATE 100 MG TAB PO SCH (20:07)
[2021-10-16] MEDS: MORPHINE 10MG/0.5ML ORAL CONCENTRATE SOLUTION U/D SL PRN (12:34)
[2021-10-16] MEDS: traZODone 100 MG TAB PO SCH (21:14)
[2021-10-16] MEDS: QUEtiapine FUMARATE 100 MG TAB PO SCH (21:14)
[2021-10-17] MEDS: traZODone 100 MG TAB PO SCH (20:39)
[2021-10-17] MEDS: QUEtiapine FUMARATE 100 MG TAB PO SCH (20:39)
[2021-10-17] MEDS: MORPHINE 10MG/0.5ML ORAL CONCENTRATE SOLUTION U/D SL PRN (20:46)
[2021-10-18] MEDS ORDERED: TRAZ-257 PO (07:30)
[2021-10-18] MEDS ORDERED: HYOS125TA PO (07:30)
[2021-10-18] MEDS ORDERED: QUET100T2 PO (07:30)
[2021-10-18] MEDS ORDERED: ATIV1TAB10 PO (07:30)
[2021-10-18] MEDS ORDERED: TRAN1DIS4 TOP (07:30)
[2021-10-18] MEDS ORDERED: MORP1SOL5 PO (07:30)
[2021-10-18] MEDS: MORPHINE 10MG/0.5ML ORAL CONCENTRATE SOLUTION U/D SL PRN (09:52)
== END 2021-10-18 10:10 | disposition hospice, inpatient (51) | DRG 91 ==
LOC: M ED 07:25 → EDBD 07:25 → M ED INP 09:51 → ENRESERV 10:50 → M MS5PR 11:30 → M PCU 10-08 06:00 → M MSPAV 10-10 22:55
PROVIDERS: ADMIT General Practice; ATTEND General Practice
DX: G92.8 Other toxic encephalopathy (principal); G93.6 Cerebral edema; C79.31 Secondary malignant neoplasm of brain; E87.2 Acidosis; C78.7 Secondary malignant neoplasm of liver and intrahepatic bile duct; C78.00 Secondary malignant neoplasm of unspecified lung; C78.5 Secondary malignant neoplasm of large intestine and rectum; C78.6 Secondary malignant neoplasm of retroperitoneum and peritoneum; I10 Essential (primary) hypertension; J44.9 Chronic obstructive pulmonary disease, unspecified; K21.9 Gastro-esophageal reflux disease without esophagitis; E78.5 Hyperlipidemia, unspecified; E11.9 Type 2 diabetes mellitus without complications; Z66 Do not resuscitate; D72.829 Elevated white blood cell count, unspecified; T42.6X5A Adverse effect of other antiepileptic and sedative-hypnotic drugs, initial encounter; T45.0X5A Adverse effect of antiallergic and antiemetic drugs, initial encounter; C80.1 Malignant (primary) neoplasm, unspecified; Z92.3 Personal history of irradiation; F31.9 Bipolar disorder, unspecified; Z87.891 Personal history of nicotine dependence; K44.9 Diaphragmatic hernia without obstruction or gangrene; Z79.899 Other long term (current) drug therapy; Z51.5 Encounter for palliative care; Z79.82 Long term (current) use of aspirin